=== PATIENT | male | born 1945 | race Caucasian/White ===

== ENCOUNTER → 2018-06-11 | Outpatient (CLI) | payer MEDICARE ==
--- NOTE | 2018-06-11 08:47 | US ---
EXAMINATION TYPE: US carotid duplex BILAT DATE OF EXAM: 06/11/2018 COMPARISON: NONE CLINICAL HISTORY: R42 Dizziness; not related to positional changes per patient; A Fib EXAM MEASUREMENTS: RIGHT: Peak Systolic Velocity (PSV) cm/sec ----- Right CCA: 66.6 ----- Right ICA: 82.5 ----- Right ECA: 61.6 ICA/CCA ratio: 1.2 RIGHT: End Diastole cm/sec ----- Right CCA: 14.9 ----- Right ICA: 25.0 ----- Right ECA: 11.9 LEFT: Peak Systolic Velocity (PSV) cm/sec ----- Left CCA: 56.7 ----- Left ICA: 87.5 ----- Left ECA: 96.0 ICA/CCA ratio: 1.5 LEFT: End Diastole cm/sec ----- Left CCA: 13.2 ----- Left ICA: 30.3 ----- Left ECA: 14.0 VERTEBRALS (direction of flow): Right Vertebral: Antegrade Left Vertebral: Antegrade Rhythm: Arrhythmia Mild to moderate intimal wall changes are noted at bilateral carotid bifurcation, but PSV is wnl bila terally. IMPRESSION: 1. Moderate amount of grayscale atheromatous plaquing at the right carotid bulb without elevated [place] or abnormal ratios to indicate hemodynamically significant stenosis on the right. 2. Mild atheromatous plaquing within the left common carotid artery and carotid bulb without hemodyna mically significant stenosis. 3. Incidentally noted arrhythmia. Patient describes a known history of atrial fibrillation.
== END | disposition home or self-care (01) ==
LOC: RADUSWWP 08:00
PROVIDERS: ATTEND Internal Medicine
DX: I65.23 Occlusion and stenosis of bilateral carotid arteries (principal); I48.91 Unspecified atrial fibrillation
CPT/HCPCS: 93880

== ENCOUNTER 2019-10-05 12:53 | Inpatient (IN) | payer MEDICARE ==
[2019-10-05 14:20] LABS: Basophils % (A) 1 %; Eosinophils # (A) 0.2 k/uL (0-0.7); Eosinophils % (A) 3 %; HCT 23.5 % (39.0-53.0); Lymphocytes # (A) 0.9 k/uL (1.0-4.8); Lymphocytes % (A) 15 %; MCH 35.9 pg (25.0-35.0); MCHC 33.9 g/dL (31.0-37.0); MCV 105.7 fL (80.0-100.0); Macrocytosis Moderate; Mean Platelet Volume 6.5; Monocytes # (A) 0.4 k/uL (0-1.0); Monocytes % (A) 8 %; Neutrophils % (A) 71 %; Platelet Count 132 k/uL (150-450); RBC 2.22 m/uL (4.30-5.90); RDW 14.4 % (11.5-15.5); WBC 5.7 k/uL (3.8-10.6)
[2019-10-05 14:25] LABS: INR 1.2 (<1.2); Prothrombin Time 12.2 sec (9.0-12.0)
[2019-10-05 14:26] LABS: Albumin 3.3 g/dL (3.5-5.0); Calcium 8.4 mg/dL (8.4-10.2); Magnesium 1.2 mg/dL (1.6-2.3); Potassium 4.1 mmol/L (3.5-5.1); Total Protein 6.3 g/dL (6.3-8.2)
[2019-10-05] MEDS ORDERED: SODIUM CHLORIDE 0.9% 1,000 ML IV STA (14:55)
[2019-10-05] MEDS ORDERED: SODIUM CHLORIDE 0.9% 1,000 ML IV ONE (14:55)
[2019-10-05] MEDS ORDERED: NALOXONE 0.4 MG/ML 1 ML VIAL IV PRN (15:22)
--- NOTE | 2019-10-05 15:22 | ED ---
GI Bleed HPI - General Chief complaint: GI Bleed Stated complaint: Rectal bleeding Time Seen by Provider: 10/05/19 13:00 Source: patient Mode of arrival: wheelchair Limitations: physical limitation - History of Present Illness Initial comments: The patient is a 74-year-old male with past history of A. fib on Elquis who presents emergency room with bright red blood per rectum. He states that the symptoms have been present for the past several months. He will intermittently have episodes of bright red bleeding after having a bowel movement. Denies constipation or diarrhea. No grossly melanotic stools. Denies any abdominal pain or rectal pain. States that today he did have a bowel movement and noted that he had bright red blood per rectum. He was having difficulty stopping it and therefore came into the emergency room for evaluation. He has been taking his Elquis as directed. Family at bedside does report to a possible history of previous GI bleeding. He had a colonoscopy in [address] Orozco. She is unaware of the results. Does not remember a diagnosis of peptic ulcer disease. This is last time the patient had a colonoscopy. Denies nausea, vomiting or hematemesis. Denies any urinary changes. There are no other alleviating, precipitating or modifying factors - Related Data Home Medications Medication Instructions Recorded Confirmed Allopurinol [Zyloprim] 100 mg PO QAM 10/05/19 10/05/19 Apixaban [Eliquis] 5 mg PO BID 10/05/19 10/05/19 Carvedilol 25 mg PO QAM 10/05/19 10/05/19 Enalapril [Vasotec] 2.5 mg PO DAILY 10/05/19 10/05/19 Ferrous Sulfate [Feosol] 325 mg PO QAM 10/05/19 10/05/19 Furosemide [Lasix] 40 mg PO BID 10/05/19 10/05/19 Meloxicam [Mobic] 7.5 mg PO QAM 10/05/19 10/05/19 [place]-3 Fatty Acids [[place]-3] 1,000 mg PO QAM 10/05/19 10/05/19 Omeprazole 20 mg PO QAM 10/05/19 10/05/19 Allergies Allergy/AdvReac Type Severity Reaction Status Date / Time No Known Allergies Allergy Verified 10/05/19 13:35 Review of Systems ROS Statement: Those systems with pertinent positive or pertinent negative responses have been documented in the HPI. ROS Other: All systems not noted in ROS Statement are negative. Past Medical History Past Medical History: Atrial Fibrillation, Coronary Artery Disease (CAD), Diabetes Mellitus, GERD/Reflux, Hypertension Additional Past Medical History / Comment(s): low hgb, gout Additional Past Surgical History / Comment(s): hip, cataracts Past Psychological History: No Psychological Hx Reported Smoking Status: Never smoker Past Alcohol Use History: Daily Past Drug Use History: None Reported - Past Family History Father Family Medical History: Diabetes Mellitus Mother Family Medical History: No Reported History General Exam Limitations: physical limitation General appearance: alert, in no apparent distress Head exam: Present: atraumatic, normocephalic, normal inspection Eye exam: Present: normal appearance, PERRL, EOMI. Absent: scleral icterus, conjunctival injection, periorbital swelling ENT exam: Present: normal exam, mucous membranes moist Neck exam: Present: normal inspection. Absent: tenderness, meningismus, lymphadenopathy Respiratory exam: Present: normal lung sounds bilaterally. Absent: respiratory distress, wheezes, rales, rhonchi, stridor Cardiovascular Exam: Present: regular rate, normal rhythm, normal heart sounds. Absent: systolic murmur, diastolic murmur, rubs, gallop, clicks GI/Abdominal exam: Present: soft, normal bowel sounds. Absent: distended, tenderness, guarding, rebound, rigid Rectal exam: Present: bloody stool, hemorrhoids, other (the patient has extensive external hemorrhoids. There are also some dusky appearing tissue at the anal opening which could represent prolapsed internal hemorrhoids vs mass. There is a slow trickle of consistent bright red blood from the rectum) Extremities exam: Present: normal inspection, full ROM, normal capillary refill. Absent: tenderness, pedal edema, joint swelling, calf tenderness Back exam: Present: normal inspection Neurological exam: Present: alert, oriented X3, CN II-XII intact Psychiatric exam: Present: normal affect, normal mood Skin exam: Present: warm, dry, intact, normal color. Absent: rash Course Vital Signs 10/05/19 10/05/19 10/05/19 12:57 15:35 16:36 Temperature 97.9 F 98.0 F Pulse Rate 90 91 79 Respiratory 18 16 16 Rate Blood Pressure 170/109 143/100 156/96 O2 Sat by Pulse 94 L 97 96 Oximetry Procedures - Stool Hemoccult Hemoccult result: positive Medical Decision Making - Medical Decision Making Upon arrival the patient was placed into room 6. A thorough history and physical exam was performed. I did perform a rectal exam which demonstrates mul tiple nonthrombosed external hemorrhoids. The patient also has multiple what appear to be internal prolapsed hemorrhoids. Rectal mass difficult to rule out due to the macerated appearance. There is a slow trickle of bright red blood from the rectum. I did recommend laboratory studies. Hemoglobin is 8. Previous hemoglobin in February was 12.4. INR is 1.2. Sodium 131, chloride 92. Lactic acid 2.6. Magnesium 1.2. Fecal occult was positive. I did provide the patient with a liter bolus of normal saline followed by 100 mL per hour. I also replace his magnesium. I did recommend trending the patient's hemoglobin every 8 hours. I called and discussed the Case with Dr. Waldrop who accepted admission to the ICU. I also called and discussed the case with Dr. Moscoso accepted admission. Dr. Moscoso requested that I place surgery/Dr. Lugo on consult. I called Dr. Lugo twice without call back. I then called and discussed the case with Dr. Slaughter who states that Dr. Lugo is out of town and that he is already aware of the consult. Patient was then transported to the floor in stable condition. I will hold his Eliquis. - Lab Data Result diagrams: 10/06/19 16:29 10/06/19 06:00 Lab Results 10/05/19 10/05/19 10/05/19 Range/Units 14:00 14:05 14:05 WBC 5.7 (3.8-10.6) k/uL RBC 2.22 L (4.30-5.90) m/uL Hgb 8.0 L (13.0-17.5) gm/dL Hct 23.5 L (39.0-53.0) % MCV 105.7 H (80.0-100.0) fL MCH 35.9 H (25.0-35.0) pg MCHC 33.9 (31.0-37.0) g/dL RDW 14.4 (11.5-15.5) % Plt Count 132 L (150-450) k/uL Neutrophils % 71 % Lymphocytes % 15 % Monocytes % 8 % Eosinophils % 3 % Basophils % 1 % Neutrophils # 4.0 (1.3-7.7) k/uL Lymphocytes # 0.9 L (1.0-4.8) k/uL Monocytes # 0.4 (0-1.0) k/uL Eosinophils # 0.2 (0-0.7) k/uL Basophils # 0.0 (0-0.2) k/uL Macrocytosis Moderate PT (9.0-12.0) sec INR (<1.2) APTT (22.0-30.0) sec Sodium 131 L (137-145) mmol/L Potassium 4.1 (3.5-5.1) mmol/L Chloride 92 L (98-107) mmol/L Carbon Dioxide 30 (22-30) mmol/L Anion Gap 9 mmol/L BUN 18 (9-20) mg/dL Creatinine 1.01 (0.66-1.25) mg/dL Est GFR (CKD-EPI)AfAm 84 (>60 ml/min/1.73 sqM) Est GFR (CKD-EPI)NonAf 73 (>60 ml/min/1.73 sqM) Glucose 85 (74-99) mg/dL Lactic Ac Sepsis Rflx Plasma Lactic Acid Sincere (0.7-2.0) mmol/L Calcium 8.4 (8.4-10.2) mg/dL Magnesium 1.2 L (1.6-2.3) mg/dL Total Bilirubin 1.0 (0.2-1.3) mg/dL AST 30 (17-59) U/L ALT 20 L (21-72) U/L Alkaline Phosphatase 98 (38-126) U/L Total Protein 6.3 (6.3-8.2) g/dL Albumin 3.3 L (3.5-5.0) g/dL Lipase 103 (23-300) U/L Stool Occult Blood (Negative) Blood Type Blood Type Confirm O Positive Blood Type Recheck Bld Type Recheck Status Antibody Screen Crossmatch Spec Expiration Date 10/05/19 10/05/19 10/05/19 Range/Units 14:05 14:05 14:05 WBC (3.8-10.6) k/uL RBC (4.30-5.90) m/uL Hgb (13.0-17.5) gm/dL Hct (39.0-53.0) % MCV (80.0-100.0) fL MCH (25.0-35.0) pg MCHC (31.0-37.0) g/dL RDW (11.5-15.5) % Plt Count (150-450) k/uL Neutrophils % % Lymphocytes % % Monocytes % % Eosinophils % % Basophils % % Neutrophils # (1.3-7.7) k/uL Lymphocytes # (1.0-4.8) k/uL Monocytes # (0-1.0) k/uL Eosinophils # (0-0.7) k/uL Basophils # (0-0.2) k/uL Macrocytosis PT 12.2 H (9.0-12.0) sec INR 1.2 H (<1.2) APTT 31.0 H (22.0-30.0) sec Sodium (137-145) mmol/L Potassium (3.5-5.1) mmol/L Chloride (98-107) mmol/L Carbon Dioxide (22-30) mmol/L Anion Gap mmol/L BUN (9-20) mg/dL Creatinine (0.66-1.25) mg/dL Est GFR (CKD-EPI)AfAm (>60 ml/min/1.73 sqM) Est GFR (CKD-EPI)NonAf (>60 ml/min/1.73 sqM) Glucose (74-99) mg/dL Lactic Ac Sepsis Rflx Plasma Lactic Acid Sincere 2.6 H* (0.7-2.0) mmol/L Calcium (8.4-10.2) mg/dL Magnesium (1.6-2.3) mg/dL Total Bilirubin (0.2-1.3) mg/dL AST (17-59) U/L ALT (21-72) U/L Alkaline Phosphatase (38-126) U/L Total Protein (6.3-8.2) g/dL Albumin (3.5-5.0) g/dL Lipase (23-300) U/L Stool Occult Blood Positive (Negative) Blood Type Blood Type Confirm Blood Type Recheck Bld Type Recheck Status Antibody Screen Crossmatch Spec Expiration Date 10/05/19 10/05/19 Range/Units 14:05 14:32 WBC (3.8-10.6) k/uL RBC (4.30-5.90) m/uL Hgb (13.0-17.5) gm/dL Hct (39.0-53.0) % MCV (80.0-100.0) fL MCH (25.0-35.0) pg MCHC (31.0-37.0) g/dL RDW (11.5-15.5) % Plt Count (150-450) k/uL Neutrophils % % Lymphocytes % % Monocytes % % Eosinophils % % Basophils % % Neutrophils # (1.3-7.7) k/uL Lymphocytes # (1.0-4.8) k/uL Monocytes # (0-1.0) k/uL Eosinophils # (0-0.7) k/uL Basophils # (0-0.2) k/uL Macrocytosis PT (9.0-12.0) sec INR (<1.2) APTT (22.0-30.0) sec Sodium (137-145) mmol/L Potassium (3.5-5.1) mmol/L Chloride (98-107) mmol/L Carbon Dioxide (22-30) mmol/L Anion Gap mmol/L BUN (9-20) mg/dL Creatinine (0.66-1.25) mg/dL Est GFR (CKD-EPI)AfAm (>60 ml/min/1.73 sqM) Est GFR (CKD-EPI)NonAf (>60 ml/min/1.73 sqM) Glucose (74-99) mg/dL Lactic Ac Sepsis Rflx Y Plasma Lactic Acid Sincere (0.7-2.0) mmol/L Calcium (8.4-10.2) mg/dL Magnesium (1.6-2.3) mg/dL Total Bilirubin (0.2-1.3) mg/dL AST (17-59) U/L ALT (21-72) U/L Alkaline Phosphatase (38-126) U/L Total Protein (6.3-8.2) g/dL Albumin (3.5-5.0) g/dL Lipase (23-300) U/L Stool Occult Blood (Negative) Blood Type O Positive Blood Type Confirm Blood Type Recheck No Previous Record Bld Type Recheck Status CABO Indicated Antibody Screen NEGATIVE Crossmatch See Detail Spec Expiration Date 10/08/2019 Disposition Clinical Impression: Hematochezia Disposition: ADMITTED IP TO THIS [facility] Condition: Serious Is patient prescribed a controlled substance at d/c from ED?: No Decision to Admit Reason: Admit from EC Decision Date: 10/05/19 Decision Time: 15:21
[2019-10-05] MEDS: SODIUM CHLORIDE 0.9% 1,000 ML IV SCH (15:33)
[2019-10-05 17:14] LABS: Glucose,Whole Blood 91 mg/dL (75-99)
[2019-10-05] MEDS ORDERED: Magnesium Replacement Protocol 1 EACH MISC MISCELLANE PRN (18:05)
[2019-10-05] MEDS ORDERED: LORazepam 2 MG/ML INJ IV PRN ×3 (19:07)
[2019-10-05] MEDS ORDERED: THIAMINE 100 MG/ML 2 ML VIAL IM STA (19:07)
[2019-10-05] MEDS: MAGNESIUM SULFATE-D5W PMX 1 GM in DEXTROSE/WATER 1 100ML.BAG IVPB SCH ×3 (20:08→22:39)
[2019-10-05] MEDS: THIAMINE 100 MG TAB PO SCH (20:19)
[2019-10-05] MEDS: PANTOPRAZOLE 40 MG/10 ML VIAL IV SCH (21:29)
[2019-10-05] MEDS ORDERED: CARVEDILOL 12.5 MG TAB PO STA (22:24)
--- NOTE | 2019-10-06 00:18 | P.HPIM ---
History of Present Illness H&P Date: 10/05/19 Chief Complaint: Blood per rectum Patient is a 74-year-old male with a known history of atrial fibrillation on Eliquis currently, diabetes type 2, hypertension and GERD came to ER with complaints of blood per rectum. Patient has been having symptoms of blood per rectum, bright red blood for the past 2-3 months. Today patient noticed blood clots and is bleeding more than usual and unable to come down at home. Patient presented to ER for further evaluation. Patient is a poor historian otherwise. Patient does have a history of previous colonoscopy in 2012. Denied any abdominal pain. No nausea vomiting. No hematemesis. No dysuria or hematuria. No headache. Patient has been having bilateral lower the swelling chronically and is getting worse recently. Patient does take Lasix 40 mg twice daily at home. Denied any fever or chills. No cough or sputum production. Hemoglobin 8.0. Usually runs around 12 MCV 103 and platelets 132,000 Lactic acid 2.6, sodium 131 Review of Systems Constitutional: Patient denies any fever or chills . No generalized weakness or weight loss. Abdomen: Patient denied nausea vomiting and diarrhea and abdominal pain. Cardiovascular: Patient denies any chest pain or short of breath no palpitations. Patient does have leg swelling bilaterally Respiratory: patient denied any cough is from production. No shortness of breath Neurologic: Patient denied any numbness or tingling headache. Musculoskeletal: Patient denies any complaints of joint swelling or deformity. Skin: Negative Complete review of systems could not be obtained from the patient. Past Medical History Past Medical History: Atrial Fibrillation, Coronary Artery Disease (CAD), Diabetes Mellitus, GERD/Reflux, Hypertension Additional Past Medical History / Comment(s): low hgb, gout History of Any Multi-Drug Resistant Organisms: None Reported Additional Past Surgical History / Comment(s): hip, cataracts Past Anesthesia/Blood Transfusion Reactions: No Reported Reaction Past Psychological History: No Psychological Hx Reported Smoking Status: Never smoker Past Alcohol Use History: Daily Past Drug Use History: None Reported - Past Family History Father Family Medical History: Diabetes Mellitus Mother Family Medical History: No Reported History Medications and Allergies Home Medications Medication Instructions Recorded Confirmed Type Allopurinol [Zyloprim] 100 mg PO QAM 10/05/19 10/05/19 History Apixaban [Eliquis] 5 mg PO BID 10/05/19 10/05/19 History Carvedilol 25 mg PO QAM 10/05/19 10/05/19 History Enalapril [Vasotec] 2.5 mg PO DAILY 10/05/19 10/05/19 History Ferrous Sulfate [Feosol] 325 mg PO QAM 10/05/19 10/05/19 History Furosemide [Lasix] 40 mg PO BID 10/05/19 10/05/19 History Meloxicam [Mobic] 7.5 mg PO QAM 10/05/19 10/05/19 History [place]-3 Fatty Acids [[place]-3] 1,000 mg PO QAM 10/05/19 10/05/19 History Omeprazole 20 mg PO QAM 10/05/19 10/05/19 History Allergies Allergy/AdvReac Type Severity Reaction Status Date / Time No Known Allergies Allergy Verified 10/05/19 13:35 Physical Exam Vitals: Vital Signs Temp Pulse Resp BP Pulse Ox 10/05/19 22:00 71 18 174/101 98 10/05/19 21:00 64 20 165/99 98 10/05/19 20:00 98.2 F 67 22 154/82 98 10/05/19 19:00 84 32 H 160/87 98 10/05/19 18:00 80 23 148/92 98 10/05/19 17:30 87 24 148/92 98 10/05/19 16:36 98.0 F 79 16 156/96 96 10/05/19 15:35 91 16 143/100 97 10/05/19 12:57 97.9 F 90 18 170/109 94 L Intake and Output 10/05/19 10/05/19 10/06/19 14:59 22:59 06:59 Intake Total 600 Output Total 500 Balance 100 Intake: Intake, IV Titration 600 Amount Magnesium Sulfate-D5w Pmx 100 1 gm In Dextrose/Water 1 100ml.bag @ 100 mls/hr IVPB Q1H MONIKA Rx#: [id number] Sodium Chloride 0.9% 1, 500 000 ml @ 100 mls/hr IV . Q10H MONIKA Rx#:[id number] Output: Urine 500 Other: Voiding Method Urinal Weight 106.594 kg PHYSICAL EXAMINATION: Patient is lying in the bed comfortably, no acute distress, awake alert and oriented.. HEENT: Normocephalic. Neck is supple. Pupils reactive. Nostrils clear. Oral cavity is moist. Ears reveal no drainage. Neck reveals no JVD, carotid bruits, or thyromegaly. CHEST EXAMINATION: Trachea is central. Symmetrical expansion. Lung moreira clear to auscultation and percussion. CARDIAC: Normal S1, S2 with no gallops. No murmurs ABDOMEN: Soft. Bowel sounds normal. No organomegaly. No abdominal bruits. Extremities: Bilateral lower extremity 3+ edema. No clubbing or cyanosis Neurologically awake, alert, oriented x3 with well-coordinated movements. No focal deficits noted Skin: No rash or skin lesions. Psychiatric: Coperative. Nonsuicidal Musculoskeletal: No joint swelling or deformity. Normal range of motion. Results CBC & Chem 7: 10/05/19 14:05 10/05/19 14:05 Labs: Abnormal Lab Results - Last 24 Hours (Table) 10/05/19 10/05/19 10/05/19 Range/Units 14:05 14:05 14:05 RBC 2.22 L (4.30-5.90) m/uL Hgb 8.0 L (13.0-17.5) gm/dL Hct 23.5 L (39.0-53.0) % MCV 105.7 H (80.0-100.0) fL MCH 35.9 H (25.0-35.0) pg Plt Count 132 L (150-450) k/uL Lymphocytes # 0.9 L (1.0-4.8) k/uL PT 12.2 H (9.0-12.0) sec INR 1.2 H (<1.2) APTT 31.0 H (22.0-30.0) sec Sodium 131 L (137-145) mmol/L Chloride 92 L (98-107) mmol/L Plasma Lactic Acid Sincere (0.7-2.0) mmol/L Magnesium 1.2 L (1.6-2.3) mg/dL ALT 20 L (21-72) U/L Albumin 3.3 L (3.5-5.0) g/dL 10/05/19 Range/Units 14:05 RBC (4.30-5.90) m/uL Hgb (13.0-17.5) gm/dL Hct (39.0-53.0) % MCV (80.0-100.0) fL MCH (25.0-35.0) pg Plt Count (150-450) k/uL Lymphocytes # (1.0-4.8) k/uL PT (9.0-12.0) sec INR (<1.2) APTT (22.0-30.0) sec Sodium (137-145) mmol/L Chloride (98-107) mmol/L Plasma Lactic Acid Sincere 2.6 H* (0.7-2.0) mmol/L Magnesium (1.6-2.3) mg/dL ALT (21-72) U/L Albumin (3.5-5.0) g/dL Thrombosis Risk Factor Assmnt - DVT/VTE Prophylaxis DVT/VTE Prophylaxis: Mechanical Prophylaxis ordered Assessment and Plan Assessment: Acute blood loss anemia secondary to lower GI bleed. Rectal mass cannot be excluded. Symptomatic anemia Atrial fibrillation paroxysmal . on anticoagulation with Eliquis Diabetes type 2 Hypovolemic hyponatremia Lactic acidosis Macrocytic anemia secondary to chronic alcohol use Uncontrolled hypertension GERD Alcohol abuse on daily basis GI and DVT prophylaxis. Plan: Patient will be continued on IV hydration and monitor H&H. Continue with thiamine and multivitamins and PPI. Gen. surgery will be consulted. Continue with home blood pressure medications and monitor closely. Titrate blood pressure medications. Eliquis is on hold. Further recommendations based on the clinical course. Prognosis guarded at this time. Monitor for alcohol withdrawal symptoms Time with Patient: Greater than 30
[2019-10-06 00:33] LABS: HCT 21.9 % (39.0-53.0); HGB 7.1 gm/dL (13.0-17.5); MCH 34.6 pg (25.0-35.0); MCHC 32.6 g/dL (31.0-37.0); Macrocytosis Moderate; Mean Platelet Volume 7.1; Platelet Count 114 k/uL (150-450); RBC 2.06 m/uL (4.30-5.90); RDW 14.4 % (11.5-15.5); WBC 5.1 k/uL (3.8-10.6)
[2019-10-06] MEDS: SODIUM CHLORIDE 0.9% 1,000 ML IV SCH ×3 (01:34→20:49)
--- NOTE | 2019-10-06 03:08 | XR ---
EXAMINATION TYPE: XR chest 1V portable DATE OF EXAM: 10/05/2019 COMPARISON: NONE HISTORY: Short of breath TECHNIQUE: Single frontal view of the chest is obtained. FINDINGS: Heart is enlarged. There is mild pulmonary congestion. There is very slight blunting of th e costophrenic angles. There are chest leads IMPRESSION: There is evidence for mild congestive heart failure. Moderate cardiomegaly.
[2019-10-06 05:10] LABS: Appearance,Urine Clear (Clear); Bilirubin,Urine Negative (Negative); Blood,Urine Negative (Negative); Color,Urine Yellow; Glucose,Urine (UA) Negative (Negative); Ketones,Urine 1+ (Negative); Leukocyte Esterase,Urine Negative (Negative); Nitrite,Urine Negative (Negative); PH, Urine 5.5 (5.0-8.0); Protein,Urine Trace (Negative); Specific Gravity,Urine 1.016 (1.001-1.035)
[2019-10-06 06:24] LABS: Basophils % (A) 1 %; Eosinophils # (A) 0.2 k/uL (0-0.7); Eosinophils % (A) 4 %; HCT 20.5 % (39.0-53.0); Lymphocytes # (A) 0.8 k/uL (1.0-4.8); Lymphocytes % (A) 19 %; MCH 35.4 pg (25.0-35.0); MCHC 33.2 g/dL (31.0-37.0); MCV 106.7 fL (80.0-100.0); Macrocytosis Moderate; Mean Platelet Volume 6.7; Monocytes # (A) 0.4 k/uL (0-1.0); Monocytes % (A) 10 %; Neutrophils # (A) 2.7 k/uL (1.3-7.7); Neutrophils % (A) 63 %; Platelet Count 117 k/uL (150-450); RBC 1.92 m/uL (4.30-5.90); RDW 14.4 % (11.5-15.5); WBC 4.2 k/uL (3.8-10.6)
[2019-10-06 06:37] LABS: African American GFR (CKD) >90 (>60 ml/min/1.73 sqM); Anion Gap 7 mmol/L; Blood Urea Nitrogen 16 mg/dL (9-20); Carbon Dioxide 28 mmol/L (22-30); Chloride 96 mmol/L (98-107); Glucose 74 mg/dL (74-99); Magnesium 1.7 mg/dL (1.6-2.3); Non-African American GFR(CKD) 88 (>60 ml/min/1.73 sqM); Potassium 4.4 mmol/L (3.5-5.1); Sodium 131 mmol/L (137-145)
[2019-10-06 06:41] LABS: HGB 6.8 gm/dL (13.0-17.5)
[2019-10-06] MEDS ORDERED: PANTOPRAZOLE 40 MG TABLET PO SCH (07:30)
[2019-10-06] MEDS: INSULIN ASPART (NovoLOG) 100 UNIT/ML VIAL SQ SCH ×3 (07:40→17:01)
[2019-10-06] MEDS: THIAMINE 100 MG TAB PO SCH ×2 (07:51→17:01)
[2019-10-06] MEDS: MAGNESIUM SULFATE-D5W PMX 1 GM in DEXTROSE/WATER 1 100ML.BAG IVPB SCH ×2 (07:51→09:51)
[2019-10-06] MEDS: LISINOPRIL 5 MG TAB PO SCH (08:00)
[2019-10-06] MEDS: CARVEDILOL 12.5 MG TAB PO SCH (08:00)
[2019-10-06] MEDS: PANTOPRAZOLE 40 MG/10 ML VIAL IV SCH (08:00)
[2019-10-06] MEDS: FERROUS SULFATE 325 MG TAB PO SCH (08:00)
[2019-10-06 11:30] LABS: Glucose,Whole Blood 97 mg/dL (75-99)
--- NOTE | 2019-10-06 12:00 | P.CNPUL ---
History of Present Illness Consult date: 10/06/19 Requesting physician: Gisele Moscoso Reason for consult: other (Critical care management) Chief complaint: Rectal bleeding History of present illness: This is a very pleasant 74-year-old gentleman who follows with Dr. Bowman as her primary care provider. He has a history of atrial fibrillation anticoagulated with Eliquis, coronary artery disease, diabetes mellitus, gastroesophageal reflux disease, hypertension, daily alcohol use. He is a lifelong nonsmoker. He presented here to the emergency room yesterday after developing bright red blood per rectum. He denied having any noted bloody bowel movements. States most of the blood comes while he is wiping. Yesterday however he is having trouble stopping the bleeding. He presented here to the emergency room for the same. No dizziness or lightheadedness. No chest pain or shortness of breath. Chest x-ray shows mild pulmonary congestion with cardiomegaly. Initial hemoglobin 7.1. Today 6.8. White count 4.2. Platelets 117,000. MCV 106.7. Sodium 131. Creatinine 0.79. He is seen today in consultation in the intensive care unit. He is awake and alert in no acute distress. Hemodynamically stable. On room air. One unit of packed red blood cells being transfused. Surgical consult pending. Review of Systems REVIEW OF SYSTEMS: CONSTITUTIONAL: Denies any recent significant weight loss or weight gain. EYES: Denies change in vision. EARS, NOSE, MOUTH, THROAT: Denies headaches, denies sore throat. CARDIOVASCULAR: Denies chest pain, palpitations or syncopal episodes. RESPIRATORY: Denies shortness of breath, cough, congestion or hemoptysis. GASTROINTESTINAL: Bright red blood per rectum GENITOURINARY: Denies hematuria, denies infections. MUSKULOSKELETAL: Denies pain, denies swelling. INTEGUMENTARY: Denies rash, denies eczema. NEUROLOGICAL: Denies recent memory loss, no recent seizure activity. PSYCHIATRIC: Denies anxiety, denies depression. HEMATOLOGIC/LYMPHATIC: Denies anemia, denies enlarged lymph nodes. Past Medical History Past Medical History: Atrial Fibrillation, Coronary Artery Disease (CAD), Diabetes Mellitus, GERD/Reflux, Hypertension Additional Past Medical History / Comment(s): low hgb, gout History of Any Multi-Drug Resistant Organisms: None Reported Additional Past Surgical History / Comment(s): hip, cataracts Past Anesthesia/Blood Transfusion Reactions: No Reported Reaction Past Psychological History: No Psychological Hx Reported Smoking Status: Never smoker Past Alcohol Use History: Daily Past Drug Use History: None Reported - Past Family History Father Family Medical History: Diabetes Mellitus Mother Family Medical History: No Reported History Medications and Allergies Home Medications Medication Instructions Recorded Confirmed Type Allopurinol [Zyloprim] 100 mg PO QAM 10/05/19 10/05/19 History Apixaban [Eliquis] 5 mg PO BID 10/05/19 10/05/19 History Carvedilol 25 mg PO QAM 10/05/19 10/05/19 History Enalapril [Vasotec] 2.5 mg PO DAILY 10/05/19 10/05/19 History Ferrous Sulfate [Feosol] 325 mg PO QAM 10/05/19 10/05/19 History Furosemide [Lasix] 40 mg PO BID 10/05/19 10/05/19 History Meloxicam [Mobic] 7.5 mg PO QAM 10/05/19 10/05/19 History Boston-3 Fatty Acids [Boston-3] 1,000 mg PO QAM 10/05/19 10/05/19 History Omeprazole 20 mg PO QAM 10/05/19 10/05/19 History Allergies Allergy/AdvReac Type Severity Reaction Status Date / Time No Known Allergies Allergy Verified 10/05/19 13:35 Physical Exam Vitals: Vital Signs Temp Pulse Resp BP Pulse Ox 10/06/19 10:27 97.6 F 59 L 29 H 128/79 100 10/06/19 08:00 98.1 F 64 18 144/85 98 10/06/19 07:00 58 L 21 126/78 99 10/06/19 06:00 66 16 143/78 97 10/06/19 05:00 56 L 21 136/79 99 10/06/19 04:00 98.0 F 56 L 16 131/78 98 10/06/19 03:00 57 L 16 136/78 98 10/06/19 02:00 63 20 139/71 99 10/06/19 01:00 63 20 159/85 98 10/06/19 00:00 98.0 F 67 22 162/91 97 10/05/19 23:00 72 18 174/106 97 10/05/19 22:00 71 18 174/101 98 10/05/19 21:00 64 20 165/99 98 10/05/19 20:00 98.2 F 67 22 154/82 98 10/05/19 19:00 84 32 H 160/87 98 10/05/19 18:00 80 23 148/92 98 10/05/19 17:30 87 24 148/92 98 10/05/19 16:36 98.0 F 79 16 156/96 96 10/05/19 15:35 91 16 143/100 97 10/05/19 12:57 97.9 F 90 18 170/109 94 L Intake and Output 10/05/19 10/06/19 10/06/19 22:59 06:59 14:59 Intake Total 600 1000 200 Output Total 500 300 250 Balance 100 700 -50 Intake: IV 100 Magnesium Sulfate-D5w Pmx 100 1 gm In Dextrose/Water 1 100ml.bag @ 100 mls/hr IVPB Q1H [facility] Rx#: [id number] Intake, IV Titration 600 1000 100 Amount Magnesium Sulfate-D5w Pmx 100 200 1 gm In Dextrose/Water 1 100ml.bag @ 100 mls/hr IVPB Q1H [facility]IK[facility] Rx#: [id number] Sodium Chloride 0.9% 1, 500 800 100 000 ml @ 100 mls/hr IV . Q10H [facility] Rx#:[id number] Blood Product 0 Rc Pheresis 2 As3 Unit 0 [id number] Output: Urine 500 300 250 Other: Voiding Method Urinal Urinal Weight 111.9 kg GENERAL EXAM: Alert, active, comfortable in no apparent distress. On room air. HEAD: Normocephalic. EYES: Normal reaction of pupils, equal size. NOSE: Clear with pink turbinates. THROAT: No erythema or exudates. NECK: No masses, no JVD. CHEST: No chest wall deformity. LUNGS: Equal air entry with no crackles, wheeze, rhonchi or dullness. CVS: S1 and S2 normal with no audible murmur, regular rhythm. ABDOMEN: No hepatosplenomegaly, normal bowel sounds, no guarding or rigidity. SPINE: No scoliosis or deformity SKIN: No rashes CENTRAL NERVOUS SYSTEM: No focal deficits, tone is normal in all 4 extremities. EXTREMITIES: There is no peripheral edema. No clubbing, no cyanosis. Peripheral pulses are intact. Results - Laboratory Findings CBC and BMP: 10/06/19 06:00 10/06/19 06:00 PT/INR, D-dimer PT 12.2 sec (9.0-12.0) H 10/05/19 14:05 INR 1.2 (<1.2) H 10/05/19 14:05 Abnormal lab findings: Abnormal Labs 10/05/19 10/05/19 10/05/19 14:05 14:05 14:05 RBC 2.22 L Hgb 8.0 L Hct 23.5 L MCV 105.7 H MCH 35.9 H Plt Count 132 L Lymphocytes # 0.9 L PT 12.2 H INR 1.2 H APTT 31.0 H Sodium 131 L Chloride 92 L Plasma Lactic Acid Sincere Calcium Magnesium 1.2 L ALT 20 L Albumin 3.3 L Urine Protein Urine Ketones Crossmatch 10/05/19 10/05/19 10/06/19 14:05 14:05 00:24 RBC 2.06 L Hgb 7.1 L Hct 21.9 L MCV 106.0 H MCH Plt Count 114 L Lymphocytes # PT INR APTT Sodium Chloride Plasma Lactic Acid Sincere 2.6 H* Calcium Magnesium ALT Albumin Urine Protein Urine Ketones Crossmatch See Detail 10/06/19 10/06/19 10/06/19 04:50 06:00 06:00 RBC 1.92 L Hgb 6.8 L* Hct 20.5 L MCV 106.7 H MCH 35.4 H Plt Count 117 L Lymphocytes # 0.8 L PT INR APTT Sodium 131 L Chloride 96 L Plasma Lactic Acid Sincere Calcium 8.0 L Magnesium ALT Albumin Urine Protein Trace H Urine Ketones 1+ H Crossmatch - Diagnostic Findings Chest x-ray: image reviewed Assessment and Plan Assessment: #1 Acute bright red blood per rectum, suspect hemorrhoids. #2 Acute blood loss anemia secondary to above with current hemoglobin 6.8, recei ving 1 unit packed red blood cells. #3 Atrial fibrillation, anticoagulated with Eliquis. #4 Daily alcohol use. #5 Hypertension. #6 Gout. #7 History of iron deficiency anemia. Plan: The patient was seen and evaluated by Dr. Mariee. Chest x-ray and labs reviewed. The patient is receiving 1 unit of packed red blood cells. Eliquis on hold. 0.9 normal saline at 100 ML's per hour. On IV Protonix. Surgical consult pending. Placed on the CIWA protocol. Observe for signs of withdrawal. The patient could be transferred out of the intensive care unit to the selective care unit once his blood is received and he stays hemodynamically stable. Continue to monitor hemoglobin. We will continue to follow and make further recommendations based on his clinical status. I, the cosigning physician, performed a history & physical examination of the patient. Lungs sounds with few crackles in the posterior bases. Maintaining good O2 saturations in the 90s on room air. I discussed the assessment and plan of care with my nurse practitioner, Savi Edmonds. I attest to the above consultation as dictated by her.
[2019-10-06] MEDS ORDERED: FUROSEMIDE 10 MG/ML 2 ML VIAL IV ONE (13:30)
--- NOTE | 2019-10-06 14:22 | P.GSCN ---
History of Present Illness Consult date: 10/06/19 Reason for Consult: GI bleed Requesting physician: Maylin Mace History of present illness: CHIEF COMPLAINT: GI bleed HISTORY OF PRESENT ILLNESS: 74-year-old male who presented to the emergency room with a chief complaint of rectal bleeding. Patient reports he had a large amount of bright red blood per rectum yesterday. He states this has been an ongoing problem over the last several months but it has been happening intermittently. Patient denies abdominal pain. Patient denies any bloody bowel movements today. PAST MEDICAL HISTORY: See list. PAST SURGICAL HISTORY: See list. SOCIAL HISTORY: No illicit drug use. History of ETOH. REVIEW OF SYSTEMS: CONSTITUTIONAL: Denies fever or chills. HEENT: Denies blurred vision, vision changes, or eye pain. Denies hemoptysis CARDIOVASCULAR: Denies chest pain or pressure. RESPIRATORY: No shortness of breath. GASTROINTESTINAL: Refer to HPI for pertinent findings HEMATOLOGIC: Denies bleeding disorders. GENITOURINARY: Denies any blood in urine. SKIN: Denies pruitis. Denies rash. PHYSICAL EXAM: VITAL SIGNS: Reviewed. GENERAL: Well-developed in no acute distress. HEENT: No sclera icterus. Extraocular movements grossly intact. Moist buccal mucosa. Head is atraumatic, normocephalic. ABDOMEN: Soft. Nondistended. Nontender. NEUROLOGIC: Alert and oriented. Cranial nerves II through XII grossly intact. LABORATORY DATA: Most recent hemoglobin 6.8. Patient receiving 1 unit PRBCs ASSESSMENT: 1. Rectal bleeding, patient reports intermittent bright red blood per rectum over the last several months, but worse over last 2 days 2. Acute blood loss anemia PLAN: 1. Full liquid diet today. Clear liquid diet beginning tomorrow. NPO at midnight beginning Friday 2. Patient to complete GoLYTELY bowel prep tomorrow 3. Continue to hold Eliquis 4. Monitor hemoglobin. Transfuse for hemoglobin less than 7.0 5. Patient to undergo colonoscopy with Dr. Slaughter on Friday Nurse practitioner note has been reviewed by physician. Signing provider agrees with the documented findings, assessment, and plan of care. Past Medical History Past Medical History: Atrial Fibrillation, Coronary Artery Disease (CAD), Diabetes Mellitus, GERD/Reflux, Hypertension Additional Past Medical History / Comment(s): low hgb, gout History of Any Multi-Drug Resistant Organisms: None Reported Additional Past Surgical History / Comment(s): hip, cataracts Past Anesthesia/Blood Transfusion Reactions: No Reported Reaction Past Psychological History: No Psychological Hx Reported Smoking Status: Never smoker Past Alcohol Use History: Daily Past Drug Use History: None Reported - Past Family History Father Family Medical History: Diabetes Mellitus Mother Family Medical History: No Reported History Medications and Allergies Home Medications Medication Instructions Recorded Confirmed Type Allopurinol [Zyloprim] 100 mg PO QAM 10/05/19 10/05/19 History Apixaban [Eliquis] 5 mg PO BID 10/05/19 10/05/19 History Carvedilol 25 mg PO QAM 10/05/19 10/05/19 History Enalapril [Vasotec] 2.5 mg PO DAILY 10/05/19 10/05/19 History Ferrous Sulfate [Feosol] 325 mg PO QAM 10/05/19 10/05/19 History Furosemide [Lasix] 40 mg PO BID 10/05/19 10/05/19 History Meloxicam [Mobic] 7.5 mg PO QAM 10/05/19 10/05/19 History [place]-3 Fatty Acids [Ekron-3] 1,000 mg PO QAM 10/05/19 10/05/19 History Omeprazole 20 mg PO QAM 10/05/19 10/05/19 History Allergies Allergy/AdvReac Type Severity Reaction Status Date / Time No Known Allergies Allergy Verified 10/05/19 13:35 Surgical - Exam Vital Signs Temp Pulse Resp BP Pulse Ox 97.9 F 90 18 170/109 94 L 10/05/19 12:57 10/05/19 12:57 10/05/19 12:57 10/05/19 12:57 10/05/19 12:57 Results - Labs 10/07/19 04:17 10/07/19 04:17 Abnormal Lab Results - Last 24 Hours (Table) 10/05/19 10/05/19 10/05/19 Range/Units 14:05 14:05 14:05 RBC 2.22 L (4.30-5.90) m/uL Hgb 8.0 L (13.0-17.5) gm/dL Hct 23.5 L (39.0-53.0) % MCV 105.7 H (80.0-100.0) fL MCH 35.9 H (25.0-35.0) pg Plt Count 132 L (150-450) k/uL Lymphocytes # 0.9 L (1.0-4.8) k/uL PT 12.2 H (9.0-12.0) sec INR 1.2 H (<1.2) APTT 31.0 H (22.0-30.0) sec Sodium 131 L (137-145) mmol/L Chloride 92 L (98-107) mmol/L Plasma Lactic Acid Sincere (0.7-2.0) mmol/L Calcium (8.4-10.2) mg/dL Magnesium 1.2 L (1.6-2.3) mg/dL ALT 20 L (21-72) U/L Albumin 3.3 L (3.5-5.0) g/dL Urine Protein (Negative) Urine Ketones (Negative) Crossmatch 10/05/19 10/05/19 10/06/19 Range/Units 14:05 14:05 00:24 RBC 2.06 L (4.30-5.90) m/uL Hgb 7.1 L (13.0-17.5) gm/dL Hct 21.9 L (39.0-53.0) % MCV 106.0 H (80.0-100.0) fL MCH (25.0-35.0) pg Plt Count 114 L (150-450) k/uL Lymphocytes # (1.0-4.8) k/uL PT (9.0-12.0) sec INR (<1.2) APTT (22.0-30.0) sec Sodium (137-145) mmol/L Chloride (98-107) mmol/L Plasma Lactic Acid Sincere 2.6 H* (0.7-2.0) mmol/L Calcium (8.4-10.2) mg/dL Magnesium (1.6-2.3) mg/dL ALT (21-72) U/L Albumin (3.5-5.0) g/dL Urine Protein (Negative) Urine Ketones (Negative) Crossmatch See Detail 10/06/19 10/06/19 10/06/19 Range/Units 04:50 06:00 06:00 RBC 1.92 L (4.30-5.90) m/uL Hgb 6.8 L* (13.0-17.5) gm/dL Hct 20.5 L (39.0-53.0) % MCV 106.7 H (80.0-100.0) fL MCH 35.4 H (25.0-35.0) pg Plt Count 117 L (150-450) k/uL Lymphocytes # 0.8 L (1.0-4.8) k/uL PT (9.0-12.0) sec INR (<1.2) APTT (22.0-30.0) sec Sodium 131 L (137-145) mmol/L Chloride 96 L (98-107) mmol/L Plasma Lactic Acid Sincere (0.7-2.0) mmol/L Calcium 8.0 L (8.4-10.2) mg/dL Magnesium (1.6-2.3) mg/dL ALT (21-72) U/L Albumin (3.5-5.0) g/dL Urine Protein Trace H (Negative) Urine Ketones 1+ H (Negative) Crossmatch Diabetes panel 10/05/19 10/06/19 Range/Units 14:05 06:00 Sodium 131 L 131 L (137-145) mmol/L Potassium 4.1 4.4 (3.5-5.1) mmol/L Chloride 92 L 96 L (98-107) mmol/L Carbon Dioxide 30 28 (22-30) mmol/L BUN 18 16 (9-20) mg/dL Creatinine 1.01 0.79 (0.66-1.25) mg/dL Glucose 85 74 (74-99) mg/dL Calcium 8.4 8.0 L (8.4-10.2) mg/dL AST 30 (17-59) U/L ALT 20 L (21-72) U/L Alkaline Phosphatase 98 (38-126) U/L Total Protein 6.3 (6.3-8.2) g/dL Albumin 3.3 L (3.5-5.0) g/dL Calcium panel 10/05/19 10/06/19 Range/Units 14:05 06:00 Calcium 8.4 8.0 L (8.4-10.2) mg/dL Albumin 3.3 L (3.5-5.0) g/dL Pituitary panel 10/05/19 10/06/19 Range/Units 14:05 06:00 Sodium 131 L 131 L (137-145) mmol/L Potassium 4.1 4.4 (3.5-5.1) mmol/L Chloride 92 L 96 L (98-107) mmol/L Carbon Dioxide 30 28 (22-30) mmol/L BUN 18 16 (9-20) mg/dL Creatinine 1.01 0.79 (0.66-1.25) mg/dL Glucose 85 74 (74-99) mg/dL Calcium 8.4 8.0 L (8.4-10.2) mg/dL Adrenal panel 10/05/19 10/06/19 Range/Units 14:05 06:00 Sodium 131 L 131 L (137-145) mmol/L Potassium 4.1 4.4 (3.5-5.1) mmol/L Chloride 92 L 96 L (98-107) mmol/L Carbon Dioxide 30 28 (22-30) mmol/L BUN 18 16 (9-20) mg/dL Creatinine 1.01 0.79 (0.66-1.25) mg/dL Glucose 85 74 (74-99) mg/dL Calcium 8.4 8.0 L (8.4-10.2) mg/dL Total Bilirubin 1.0 (0.2-1.3) mg/dL AST 30 (17-59) U/L ALT 20 L (21-72) U/L Alkaline Phosphatase 98 (38-126) U/L Total Protein 6.3 (6.3-8.2) g/dL Albumin 3.3 L (3.5-5.0) g/dL
[2019-10-06 16:46] LABS: HCT 24.7 % (39.0-53.0); MCH 34.4 pg (25.0-35.0); MCHC 32.4 g/dL (31.0-37.0); Macrocytosis Moderate; Mean Platelet Volume 7.9; Platelet Count 111 k/uL (150-450); RBC 2.33 m/uL (4.30-5.90); RDW 15.8 % (11.5-15.5)
[2019-10-06 16:51] LABS: Glucose,Whole Blood 145 mg/dL (75-99)
[2019-10-06] MEDS: FUROSEMIDE 40 MG TAB PO SCH (17:01)
[2019-10-06 23:56] LABS: Glucose,Whole Blood 90 mg/dL (75-99)
[2019-10-07] MEDS: INSULIN ASPART (NovoLOG) 100 UNIT/ML VIAL SQ SCH ×4 (01:17→16:46)
[2019-10-07 04:25] LABS: Hemoglobin A1C 4.6 % (4.0-6.0)
[2019-10-07 04:57] LABS: Basophils % (A) 1 %; Eosinophils # (A) 0.2 k/uL (0-0.7); Eosinophils % (A) 4 %; HCT 25.1 % (39.0-53.0); HGB 7.9 gm/dL (13.0-17.5); Lymphocytes # (A) 0.8 k/uL (1.0-4.8); Lymphocytes % (A) 16 %; MCH 33.2 pg (25.0-35.0); MCHC 31.4 g/dL (31.0-37.0); MCV 105.6 fL (80.0-100.0); Macrocytosis Moderate; Mean Platelet Volume 7.1; Monocytes # (A) 0.4 k/uL (0-1.0); Monocytes % (A) 8 %; Neutrophils # (A) 3.5 k/uL (1.3-7.7); Neutrophils % (A) 69 %; Platelet Count 121 k/uL (150-450); RBC 2.37 m/uL (4.30-5.90); RDW 15.9 % (11.5-15.5); WBC 5.2 k/uL (3.8-10.6)
[2019-10-07 05:08] LABS: African American GFR (CKD) >90 (>60 ml/min/1.73 sqM); Anion Gap 5 mmol/L; Blood Urea Nitrogen 14 mg/dL (9-20); Calcium 8.1 mg/dL (8.4-10.2); Carbon Dioxide 31 mmol/L (22-30); Chloride 97 mmol/L (98-107); Glucose 84 mg/dL (74-99); Magnesium 1.7 mg/dL (1.6-2.3); Non-African American GFR(CKD) 88 (>60 ml/min/1.73 sqM); Potassium 3.8 mmol/L (3.5-5.1); Sodium 133 mmol/L (137-145)
[2019-10-07] MEDS: SODIUM CHLORIDE 0.9% 1,000 ML IV SCH ×3 (06:13→23:55)
[2019-10-07 06:17] LABS: Glucose,Whole Blood 91 mg/dL (75-99)
[2019-10-07] MEDS: THIAMINE 100 MG TAB PO SCH ×2 (07:01→16:19)
[2019-10-07] MEDS: CARVEDILOL 12.5 MG TAB PO SCH (07:48)
[2019-10-07] MEDS: PANTOPRAZOLE 40 MG/10 ML VIAL IV SCH (07:48)
[2019-10-07] MEDS: FUROSEMIDE 40 MG TAB PO SCH ×2 (07:48→16:19)
[2019-10-07] MEDS: LISINOPRIL 5 MG TAB PO SCH (07:48)
[2019-10-07] MEDS: FERROUS SULFATE 325 MG TAB PO SCH (07:50)
[2019-10-07] MEDS ORDERED: PEG 3350-NA SULF,BICARB,CL/KCL 4,000 ML BOTTLE PO ONE (12:00)
--- NOTE | 2019-10-07 12:15 | P.PN ---
Subjective Progress Note Date: 10/07/19 Principal diagnosis: Rectal bleeding This is a very pleasant 74-year-old gentleman who follows with Dr. Bowman as her primary care provider. He has a history of atrial fibrillation anticoagulated with Eliquis, coronary artery disease, diabetes mellitus, gastroesophageal reflux disease, hypertension, daily alcohol use. He is a lifelong nonsmoker. He presented here to the emergency room yesterday after developing bright red blood per rectum. He denied having any noted bloody bowel movements. States most of the blood comes while he is wiping. Yesterday however he is having trouble stopping the bleeding. He presented here to the emergency room for the same. No dizziness or lightheadedness. No chest pain or shortness of breath. Chest x-ray shows mild pulmonary congestion with cardiomegaly. Initial hemoglobin 7.1. Today 6.8. White count 4.2. Platelets 117,000. MCV 106.7. Sodium 131. Creatinine 0.79. He is seen today in consultation in the intensive care unit. He is awake and alert in no acute distress. Hemodynamically stable. On room air. One unit of packed red blood cells being transfused. Surgical consult pending. The patient is seen today 10/07/2019 in follow-up in the intensive care unit. He is currently sitting up in a chair at the bedside. Awake and alert in no acute distress. No shortness of breath. No chest pain. Maintaining O2 saturation in the mid 90s on 2 L/m per nasal cannula. He's been afebrile. Hemodynamically stable. No further rectal bleeding. He received 1 unit of packed red blood cells and current hemoglobin 7.9. White count 5.2. Platelets 121,000. Sodium 133. Creatinine 0.79. Plan is for colonoscopy tomorrow. Objective - Vital Signs Vital signs: Vital Signs Temp 98.0 F 10/07/19 08:00 Pulse 70 10/07/19 09:00 Resp 18 10/07/19 09:00 BP 144/92 10/07/19 09:00 Pulse Ox 95 10/07/19 09:00 Intake & Output 10/06/19 10/07/19 10/07/19 18:59 06:59 18:59 Intake Total 1410 1200 280 Output Total 1295 1000 Balance 115 200 280 Weight 111 kg Intake: IV 1000 1200 100 Magnesium Sulfate-D5w Pmx 600 1 gm In Dextrose/Water 1 100ml.bag @ 100 mls/hr IVPB Q1H [facility] Rx#: [id number] Sodium Chloride 0.9% 1, 400 1200 100 000 ml @ 100 mls/hr IV . Q10H [facility] Rx#:[id number] Intake, IV Titration 100 Amount Sodium Chloride 0.9% 1, 100 000 ml @ 100 mls/hr IV . Q10H [facility] Rx#:[id number] Oral 180 Blood Product 310 Rc Pheresis 2 As3 Unit 310 [id number] Output: Urine 1295 1000 Other: Voiding Method Urinal Urinal # Voids 0 - Exam GENERAL EXAM: Alert, pleasant 74-year-old gentleman, comfortable in no apparent distress. HEAD: Normocephalic. EYES: Normal reaction of pupils, equal size. NOSE: Clear with pink turbinates. THROAT: No erythema or exudates. NECK: No masses, no JVD. CHEST: No chest wall deformity. LUNGS: Equal air entry with faint crackles in the posterior bases. CVS: S1 and S2 normal with no audible murmur, regular rhythm. ABDOMEN: No hepatosplenomegaly, normal bowel sounds, no guarding or rigidity. SPINE: No scoliosis or deformity SKIN: No rashes CENTRAL NERVOUS SYSTEM: No focal deficits, tone is normal in all 4 extremities. EXTREMITIES: There is no peripheral edema. No clubbing, no cyanosis. Peripheral pulses are intact. - Labs CBC & Chem 7: 10/07/19 04:17 10/07/19 04:17 Labs: Abnormal Lab Results - Last 24 Hours (Table) 10/05/19 10/06/19 10/06/19 Range/Units 14:05 16:29 16:49 RBC 2.33 L (4.30-5.90) m/uL Hgb 8.0 L (13.0-17.5) gm/dL Hct 24.7 L (39.0-53.0) % MCV 106.0 H (80.0-100.0) fL RDW 15.8 H (11.5-15.5) % Plt Count 111 L (150-450) k/uL Lymphocytes # (1.0-4.8) k/uL Sodium (137-145) mmol/L Chloride (98-107) mmol/L Carbon Dioxide (22-30) mmol/L POC Glucose (mg/dL) 145 H (75-99) mg/dL Calcium (8.4-10.2) mg/dL Crossmatch See Detail 10/07/19 10/07/19 Range/Units 04:17 04:17 RBC 2.37 L (4.30-5.90) m/uL Hgb 7.9 L (13.0-17.5) gm/dL Hct 25.1 L (39.0-53.0) % MCV 105.6 H (80.0-100.0) fL RDW 15.9 H (11.5-15.5) % Plt Count 121 L (150-450) k/uL Lymphocytes # 0.8 L (1.0-4.8) k/uL Sodium 133 L (137-145) mmol/L Chloride 97 L (98-107) mmol/L Carbon Dioxide 31 H (22-30) mmol/L POC Glucose (mg/dL) (75-99) mg/dL Calcium 8.1 L (8.4-10.2) mg/dL Crossmatch Assessment and Plan Assessment: #1 Acute bright red blood per rectum, suspect hemorrhoids. #2 Acute blood loss anemia secondary to above with current hemoglobin 6.8, received 1 unit packed red blood cells.current hemoglobin 7.9. #3 Atrial fibrillation, anticoagulated with Eliquis. #4 Daily alcohol use. #5 Hypertension. #6 Gout. #7 History of iron deficiency anemia. Plan: The patient was seen and evaluated by Dr. Mariee. No further noted bleeding. Hemoglobin 7.9. Plan is for colonoscopy tomorrow. Continue to monitor hemoglobin. quick and normal saline at 100 ML's per hour. IV Protonix. We will continue to follow and make further recommendations based on his clinical status. I, the cosigning physician, performed a history & physical examination of the patient. Lungs sounds with few crackles in the posterior bases. Maintaining good O2 saturations in the 90s on 2 L/m per nasal cannula. I discussed the asse ssment and plan of care with my nurse practitioner, Savi Edmonds. I attest to the above consultation as dictated by her.
--- NOTE | 2019-10-07 12:23 | P.PN ---
Subjective Progress Note Date: 10/07/19 CHIEF COMPLAINT: GI bleed HISTORY OF PRESENT ILLNESS: Patient examined at the bedside with Dr. Slaughter. Patient denies any further episodes of rectal bleeding. Denies abdominal pain. Denies nausea or vomiting. Tolerating clear liquid diet. Hemoglobin 7.9 this morning. PHYSICAL EXAM: VITAL SIGNS: Reviewed. GENERAL: Well-developed in no acute distress. HEENT: No sclera icterus. Extraocular movements grossly intact. Moist buccal m ucosa. Head is atraumatic, normocephalic. ABDOMEN: Soft. Nondistended. Nontender. NEUROLOGIC: Alert and oriented. Cranial nerves II through XII grossly intact. ASSESSMENT: 1. Rectal bleeding, patient reports intermittent bright red blood per rectum over the last several months, but worse over last 2 days 2. Acute blood loss anemia PLAN: 1. Clear liquid diet. Nothing by mouth at midnight 2. GoLYTELY bowel prep 3. Continue to hold Eliquis 4. Monitor hemoglobin. Transfuse for hemoglobin less than 7.0 5. Patient to undergo colonoscopy with Dr. Slaughter tomorrow Nurse practitioner note has been reviewed by physician. Signing provider agrees with the documented findings, assessment, and plan of care. Objective - Vital Signs Vital signs: Vital Signs Temp 98.0 F 10/07/19 08:00 Pulse 70 10/07/19 09:00 Resp 18 10/07/19 09:00 BP 144/92 10/07/19 09:00 Pulse Ox 95 10/07/19 09:00 Intake & Output 10/06/19 10/07/19 10/07/19 18:59 06:59 18:59 Intake Total 1410 1200 280 Output Total 1295 1000 Balance 115 200 280 Weight 111 kg Intake: IV 1000 1200 100 Magnesium Sulfate-D5w Pmx 600 1 gm In Dextrose/Water 1 100ml.bag @ 100 mls/hr IVPB Q1H [facility] Rx#: [id number] Sodium Chloride 0.9% 1, 400 1200 100 000 ml @ 100 mls/hr IV . Q10H [facility] Rx#:[id number] Intake, IV Titration 100 Amount Sodium Chloride 0.9% 1, 100 000 ml @ 100 mls/hr IV . Q10H [facility] Rx#:[id number] Oral 180 Blood Product 310 Rc Pheresis 2 As3 Unit 310 [id number] Output: Urine 1295 1000 Other: Voiding Method Urinal Urinal # Voids 0 - Labs CBC & Chem 7: 10/07/19 04:17 10/07/19 04:17 Labs: Abnormal Lab Results - Last 24 Hours (Table) 10/05/19 10/06/19 10/06/19 Range/Units 14:05 16:29 16:49 RBC 2.33 L (4.30-5.90) m/uL Hgb 8.0 L (13.0-17.5) gm/dL Hct 24.7 L (39.0-53.0) % MCV 106.0 H (80.0-100.0) fL RDW 15.8 H (11.5-15.5) % Plt Count 111 L (150-450) k/uL Lymphocytes # (1.0-4.8) k/uL Sodium (137-145) mmol/L Chloride (98-107) mmol/L Carbon Dioxide (22-30) mmol/L POC Glucose (mg/dL) 145 H (75-99) mg/dL Calcium (8.4-10.2) mg/dL Crossmatch See Detail 10/07/19 10/07/19 Range/Units 04:17 04:17 RBC 2.37 L (4.30-5.90) m/uL Hgb 7.9 L (13.0-17.5) gm/dL Hct 25.1 L (39.0-53.0) % MCV 105.6 H (80.0-100.0) fL RDW 15.9 H (11.5-15.5) % Plt Count 121 L (150-450) k/uL Lymphocytes # 0.8 L (1.0-4.8) k/uL Sodium 133 L (137-145) mmol/L Chloride 97 L (98-107) mmol/L Carbon Dioxide 31 H (22-30) mmol/L POC Glucose (mg/dL) (75-99) mg/dL Calcium 8.1 L (8.4-10.2) mg/dL Crossmatch
[2019-10-07 13:39] LABS: Glucose,Whole Blood 177 mg/dL (75-99)
[2019-10-07] MEDS: MAGNESIUM SULFATE-D5W PMX 1 GM in DEXTROSE/WATER 1 100ML.BAG IVPB SCH (16:19)
[2019-10-07 16:41] LABS: Glucose,Whole Blood 129 mg/dL (75-99)
--- NOTE | 2019-10-07 21:59 | P.PN ---
Subjective Progress Note Date: 10/06/19 Principal diagnosis: Acute GI bleed Patient is a 74-year-old male with a known history of atrial fibrillation on Eliquis currently, diabetes type 2, hypertension and GERD came to ER with complaints of blood per rectum. Patient has been having symptoms of blood per rectum, bright red blood for the past 2-3 months. Today patient noticed blood clots and is bleeding more than usual and unable to come down at home. Patient presented to ER for further evaluation. Patient is a poor historian otherwise. Patient does have a history of previous colonoscopy in 2012. Denied any ab dominal pain. No nausea vomiting. No hematemesis. No dysuria or hematuria. No headache. Patient has been having bilateral lower the swelling chronically and is getting worse recently. Patient does take Lasix 40 mg twice daily at home. Denied any fever or chills. No cough or sputum production. Hemoglobin 8.0. Usually runs around 12 MCV 103 and platelets 132,000 Lactic acid 2.6, sodium 131 10/06/2019 Patient denied any chest pain or shortness of breath. Denied any active bleeding per rectum. Hemoglobin did drop to 6.8 this morning and will be transfused with 1 unit of PRBC. Patient was seen by general surgery and is planning for colonoscopy likely tomorrow. No fever no chills. No cough or sputum production. Continue to monitor his and his. Current medications reviewed. Objective - Vital Signs Vital signs: Vital Signs Temp 98 F 10/06/19 16:00 Pulse 58 L 10/06/19 17:00 Resp 29 H 10/06/19 17:00 BP 124/88 10/06/19 17:00 Pulse Ox 99 10/06/19 17:00 Intake & Output 10/06/19 10/06/19 10/07/19 06:59 18:59 06:59 Intake Total 1500 1410 Output Total 600 1295 Balance 900 115 Weight 111.9 kg Intake: IV 1000 Magnesium Sulfate-D5w Pmx 600 1 gm In Dextrose/Water 1 100ml.bag @ 100 mls/hr IVPB Q1H [facility] Rx#: [id number] Sodium Chloride 0.9% 1, 400 000 ml @ 100 mls/hr IV . Q10H [facility] Rx#:[id number] Intake, IV Titration 1500 100 Amount Magnesium Sulfate-D5w Pmx 300 1 gm In Dextrose/Water 1 100ml.bag @ 100 mls/hr IVPB Q1H [facility] Rx#: [id number] Sodium Chloride 0.9% 1, 1200 100 000 ml @ 100 mls/hr IV . Q10H [facility] Rx#:[id number] Blood Product 310 Rc Pheresis 2 As3 Unit 310 [id number] Output: Urine 600 1295 Other: Voiding Method Urinal # Voids 0 - Exam PHYSICAL EXAMINATION: Patient is lying in the bed comfortably, no acute distress, awake alert and oriented.. HEENT: Normocephalic. Neck is supple. Pupils reactive. Nostrils clear. Oral cavity is moist. Ears reveal no drainage. Neck reveals no JVD, carotid bruits, or thyromegaly. CHEST EXAMINATION: Trachea is central. Symmetrical expansion. Lung moreira clear to auscultation and percussion. CARDIAC: Normal S1, S2 with no gallops. No murmurs ABDOMEN: Soft. Bowel sounds normal. No organomegaly. No abdominal bruits. Extremities: reveal no edema. No clubbing or cyanosis Neurologically awake, alert, oriented x3 with well-coordinated movements. No focal deficits noted Skin: No rash or skin lesions. Psychiatric: Coperative. Nonsuicidal Musculoskeletal: No joint swelling or deformity. Normal range of motion. - Labs CBC & Chem 7: 10/07/19 04:17 10/07/19 04:17 Labs: Abnormal Lab Results - Last 24 Hours (Table) 10/05/19 10/06/19 10/06/19 Range/Units 14:05 00:24 04:50 RBC 2.06 L (4.30-5.90) m/uL Hgb 7.1 L (13.0-17.5) gm/dL Hct 21.9 L (39.0-53.0) % MCV 106.0 H (80.0-100.0) fL MCH (25.0-35.0) pg RDW (11.5-15.5) % Plt Count 114 L (150-450) k/uL Lymphocytes # (1.0-4.8) k/uL Sodium (137-145) mmol/L Chloride (98-107) mmol/L POC Glucose (mg/dL) (75-99) mg/dL Calcium (8.4-10.2) mg/dL Urine Protein Trace H (Negative) Urine Ketones 1+ H (Negative) Crossmatch See Detail 10/06/19 10/06/19 10/06/19 Range/Units 06:00 06:00 16:29 RBC 1.92 L 2.33 L (4.30-5.90) m/uL Hgb 6.8 L* 8.0 L (13.0-17.5) gm/dL Hct 20.5 L 24.7 L (39.0-53.0) % MCV 106.7 H 106.0 H (80.0-100.0) fL MCH 35.4 H (25.0-35.0) pg RDW 15.8 H (11.5-15.5) % Plt Count 117 L 111 L (150-450) k/uL Lymphocytes # 0.8 L (1.0-4.8) k/uL Sodium 131 L (137-145) mmol/L Chloride 96 L (98-107) mmol/L POC Glucose (mg/dL) (75-99) mg/dL Calcium 8.0 L (8.4-10.2) mg/dL Urine Protein (Negative) Urine Ketones (Negative) Crossmatch 10/06/19 Range/Units 16:49 RBC (4.30-5.90) m/uL Hgb (13.0-17.5) gm/dL Hct (39.0-53.0) % MCV (80.0-100.0) fL MCH (25.0-35.0) pg RDW (11.5-15.5) % Plt Count (150-450) k/uL Lymphocytes # (1.0-4.8) k/uL Sodium (137-145) mmol/L Chloride (98-107) mmol/L POC Glucose (mg/dL) 145 H (75-99) mg/dL Calcium (8.4-10.2) mg/dL Urine Protein (Negative) Urine Ketones (Negative) Crossmatch Assessment and Plan Assessment: Acute blood loss anemia secondary to lower GI bleed. Rectal mass cannot be excluded. Symptomatic anemia Atrial fibrillation paroxysmal . on anticoagulation with Eliquis Diabetes type 2 Hypovolemic hyponatremia Lactic acidosis Macrocytic anemia secondary to chronic alcohol use Uncontrolled hypertension GERD Alcohol abuse on daily basis GI and DVT prophylaxis. Plan: Patient will be continued on IV hydration and monitor H&H. Continue with thiamine and multivitamins and PPI. Gen. surgery has seen the patient and is planning for colonoscopy.. Continue with home blood pressure medications and monitor closely. Titrate blood pressure medications. Eliquis is on hold. Further recommendations based on the clinical course. Prognosis guarded at this time. Monitor for alcohol withdrawal symptoms Time with Patient: Greater than 30
--- NOTE | 2019-10-07 22:01 | P.PN ---
Subjective Progress Note Date: 10/07/19 Principal diagnosis: Acute GI bleed Patient is a 74-year-old male with a known history of atrial fibrillation on Eliquis currently, diabetes type 2, hypertension and GERD came to ER with complaints of blood per rectum. Patient has been having symptoms of blood per rectum, bright red blood for the past 2-3 months. Today patient noticed blood clots and is bleeding more than usual and unable to come down at home. Patient presented to ER for further evaluation. Patient is a poor historian otherwise. Patient does have a history of previous colonoscopy in 2012. Denied any ab dominal pain. No nausea vomiting. No hematemesis. No dysuria or hematuria. No headache. Patient has been having bilateral lower the swelling chronically and is getting worse recently. Patient does take Lasix 40 mg twice daily at home. Denied any fever or chills. No cough or sputum production. Hemoglobin 8.0. Usually runs around 12 MCV 103 and platelets 132,000 Lactic acid 2.6, sodium 131 10/06/2019 Patient denied any chest pain or shortness of breath. Denied any active bleeding per rectum. Hemoglobin did drop to 6.8 this morning and will be transfused with 1 unit of PRBC. Patient was seen by general surgery and is planning for colonoscopy likely tomorrow. No fever no chills. No cough or sputum production. Continue to monitor H&H. 10/07/2019 Patient is currently sitting in a chair comfortably. Denied any bleeding overnight. Hemoglobin did improve to 8.0 yesterday with 1 unit PRBC and currently hemoglobin level is 7.9 today. Preparation for endoscopy was started. General surgery is on board. Patient denied any fever or chills. Symptomatically did improve. No chest pain or generalized weakness. Current medications reviewed. Objective - Vital Signs Vital signs: Vital Signs Temp 98.0 F 10/07/19 08:00 Pulse 70 10/07/19 09:00 Resp 18 10/07/19 12:00 BP 144/92 10/07/19 09:00 Pulse Ox 95 10/07/19 09:00 Intake & Output 10/06/19 10/07/19 10/07/19 18:59 06:59 18:59 Intake Total 1410 1200 280 Output Total 1295 1000 800 Balance 115 200 -520 Weight 111 kg Intake: IV 1000 1200 100 Magnesium Sulfate-D5w Pmx 600 1 gm In Dextrose/Water 1 100ml.bag @ 100 mls/hr IVPB Q1H [facility] Rx#: [id number] Sodium Chloride 0.9% 1, 400 1200 100 000 ml @ 100 mls/hr IV . Q10H [facility] Rx#:[id number] Intake, IV Titration 100 Amount Sodium Chloride 0.9% 1, 100 000 ml @ 100 mls/hr IV . Q10H [facility] Rx#:[id number] Oral 180 Blood Product 310 Rc Pheresis 2 As3 Unit 310 [id number] Output: Urine 1295 1000 800 Other: Voiding Method Urinal Urinal # Voids 0 - Exam PHYSICAL EXAMINATION: Patient is lying in the bed comfortably, no acute distress, awake alert and oriented.. HEENT: Normocephalic. Neck is supple. Pupils reactive. Nostrils clear. Oral cavity is moist. Ears reveal no drainage. Neck reveals no JVD, carotid bruits, or thyromegaly. CHEST EXAMINATION: Trachea is central. Symmetrical expansion. Lung moreira clear to auscultation and percussion. CARDIAC: Normal S1, S2 with no gallops. No murmurs ABDOMEN: Soft. Bowel sounds normal. No organomegaly. No abdominal bruits. Extremities: reveal no edema. No clubbing or cyanosis Neurologically awake, alert, oriented x3 with well-coordinated movements. No focal deficits noted Skin: No rash or skin lesions. Psychiatric: Coperative. Nonsuicidal Musculoskeletal: No joint swelling or deformity. Normal range of motion. - Labs CBC & Chem 7: 10/07/19 04:17 10/07/19 04:17 Labs: Abnormal Lab Results - Last 24 Hours (Table) 10/06/19 10/06/19 10/07/19 Range/Units 16:29 16:49 04:17 RBC 2.33 L 2.37 L (4.30-5.90) m/uL Hgb 8.0 L 7.9 L (13.0-17.5) gm/dL Hct 24.7 L 25.1 L (39.0-53.0) % MCV 106.0 H 105.6 H (80.0-100.0) fL RDW 15.8 H 15.9 H (11.5-15.5) % Plt Count 111 L 121 L (150-450) k/uL Lymphocytes # 0.8 L (1.0-4.8) k/uL Sodium (137-145) mmol/L Chloride (98-107) mmol/L Carbon Dioxide (22-30) mmol/L POC Glucose (mg/dL) 145 H (75-99) mg/dL Calcium (8.4-10.2) mg/dL 10/07/19 10/07/19 Range/Units 04:17 13:38 RBC (4.30-5.90) m/uL Hgb (13.0-17.5) gm/dL Hct (39.0-53.0) % MCV (80.0-100.0) fL RDW (11.5-15.5) % Plt Count (150-450) k/uL Lymphocytes # (1.0-4.8) k/uL Sodium 133 L (137-145) mmol/L Chloride 97 L (98-107) mmol/L Carbon Dioxide 31 H (22-30) mmol/L POC Glucose (mg/dL) 177 H (75-99) mg/dL Calcium 8.1 L (8.4-10.2) mg/dL Assessment and Plan Assessment: Acute blood loss anemia secondary to lower GI bleed. Rectal mass cannot be excluded. Symptomatic anemia Atrial fibrillation paroxysmal . on anticoagulation with Eliquis Diabetes type 2 Hypovolemic hyponatremia Lactic acidosis Macrocytic anemia secondary to chronic alcohol use Uncontrolled hypertension GERD Alcohol abuse on daily basis GI and DVT prophylaxis. Plan: Patient will be continued on IV hydration and monitor H&H. Continue with thiamine and multivitamins and PPI. Gen. surgery has seen the patient and is planning for colonoscopy tomorrow.. Continue with home blood pressure medications and monitor closely. Titrate blood pressure medications. Eliquis is on hold. Further recommendations based on the clinical course. Prognosis guarded at this time. Monitor for alcohol withdrawal symptoms Time with Patient: Greater than 30
[2019-10-08 00:11] LABS: Glucose,Whole Blood 119 mg/dL (75-99)
[2019-10-08] MEDS: MAGNESIUM SULFATE-D5W PMX 1 GM in DEXTROSE/WATER 1 100ML.BAG IVPB SCH ×3 (02:23→13:24)
[2019-10-08 04:56] LABS: Basophils # (A) 0.1 k/uL (0-0.2); Basophils % (A) 1 %; Eosinophils # (A) 0.2 k/uL (0-0.7); Eosinophils % (A) 5 %; HCT 24.9 % (39.0-53.0); HGB 7.9 gm/dL (13.0-17.5); Lymphocytes # (A) 0.9 k/uL (1.0-4.8); Lymphocytes % (A) 18 %; MCH 34.1 pg (25.0-35.0); MCHC 31.9 g/dL (31.0-37.0); Macrocytosis Marked; Mean Platelet Volume 6.7; Monocytes # (A) 0.4 k/uL (0-1.0); Monocytes % (A) 8 %; Neutrophils # (A) 3.3 k/uL (1.3-7.7); Neutrophils % (A) 66 %; Platelet Count 130 k/uL (150-450); RBC 2.33 m/uL (4.30-5.90); RDW 15.8 % (11.5-15.5); WBC 5.1 k/uL (3.8-10.6)
[2019-10-08 05:07] LABS: African American GFR (CKD) >90 (>60 ml/min/1.73 sqM); Anion Gap 5 mmol/L; Blood Urea Nitrogen 10 mg/dL (9-20); Calcium 8.4 mg/dL (8.4-10.2); Carbon Dioxide 33 mmol/L (22-30); Chloride 97 mmol/L (98-107); Glucose 110 mg/dL (74-99); Magnesium 1.7 mg/dL (1.6-2.3); Non-African American GFR(CKD) >90 (>60 ml/min/1.73 sqM); Potassium 3.9 mmol/L (3.5-5.1); Sodium 135 mmol/L (137-145)
[2019-10-08 06:06] LABS: Glucose,Whole Blood 103 mg/dL (75-99)
[2019-10-08] MEDS: INSULIN ASPART (NovoLOG) 100 UNIT/ML VIAL SQ SCH ×5 (07:07→21:07)
[2019-10-08] MEDS: FUROSEMIDE 40 MG TAB PO SCH ×2 (07:26→15:26)
[2019-10-08] MEDS: CARVEDILOL 12.5 MG TAB PO SCH (07:26)
[2019-10-08] MEDS: FERROUS SULFATE 325 MG TAB PO SCH (07:26)
[2019-10-08] MEDS: THIAMINE 100 MG TAB PO SCH ×2 (07:26→17:45)
[2019-10-08] MEDS: PANTOPRAZOLE 40 MG/10 ML VIAL IV SCH (07:26)
[2019-10-08] MEDS: LISINOPRIL 5 MG TAB PO SCH (07:26)
[2019-10-08] MEDS ORDERED: LIDOCAINE 1% INJ 10MG/ML (20 ML MDV) ONE (09:55)
[2019-10-08] MEDS ORDERED: GLYCOPYRROLATE 0.2 MG/ML 2 ML VIAL ONE (09:55)
[2019-10-08] MEDS ORDERED: ePHEDrine SULFATE/0.9% NACL/PF 50 MG/5 ML SYRINGE IV ONE (09:55)
[2019-10-08] MEDS ORDERED: PROPOFOL 10 MG/ML 20 ML VIAL IV ONE (09:55)
[2019-10-08] MEDS ORDERED: IV FLUID CONTINUATION 1,000 ML IV ONE ×2 (09:56)
--- NOTE | 2019-10-08 10:24 | P.OP ---
Date of Procedure: 10/08/19 Preoperative Diagnosis: GI bleed Postoperative Diagnosis: Antral gastritis Multiple gastric polyps Diverticulosis Significant internal and external hemorrhoids Procedure(s) Performed: EGD Colonoscopy Anesthesia: MAC Surgeon: Devyn Slaughter Pathology: other (Antrum) Condition: stable Disposition: PACU Description of Procedure: The patient's placed on the endoscopy table in the lateral position. He received IV sedation. The gastroscope placed oropharynx and passed in the esophagus into the stomach. Scope was then placed through the pylorus. The first and second portion of the duodenum appeared normal. Scope was then brought back the antrum this was mildly inflamed a biopsy performed. Patient had a large number of gastric polyps. A random polyp was biopsied in the body of the stomach. There is no evidence of any upper GI bleed. The GE junction was at 38 7 is. There was a large hiatal hernia. The distal esophagus appeared normal. The proximal esophagus.. Scope was then withdrawn. Next digital rectal exam is performed which revealed bleeding from internal and external hemorrhoids. The flexible colonoscope was then placed patient anus and passed rotator colon. The ileocecal valve was visualized. The cecum, ascending and transverse colon appeared normal. In the descending and sigmoid colon there is moderate diverticular changes. Scope was then brought back the rectum and this appeared normal. Scope was withdrawn through the anus and there were significant internal hemorrhoids with evidence of blood and then external hemorrhoids noted. Scope was withdrawn for patient. It is presumed that his bleeding is due to his hemorrhoids.
[2019-10-08 12:50] LABS: Glucose,Whole Blood 161 mg/dL (75-99)
[2019-10-08] MEDS: SODIUM CHLORIDE 0.9% 1,000 ML IV SCH ×2 (13:09→23:59)
[2019-10-08 17:05] LABS: Glucose,Whole Blood 103 mg/dL (75-99)
[2019-10-08 20:51] LABS: Glucose,Whole Blood 125 mg/dL (75-99)
[2019-10-09 06:02] VITALS: RESP 18
[2019-10-09 06:33] LABS: HCT 24.6 % (39.0-53.0); HGB 7.9 gm/dL (13.0-17.5); Hypochromasia Slight; MCH 34.7 pg (25.0-35.0); MCHC 32.2 g/dL (31.0-37.0); Macrocytosis Marked; Mean Platelet Volume 6.9; Platelet Count 117 k/uL (150-450); RBC 2.28 m/uL (4.30-5.90); RDW 15.8 % (11.5-15.5); WBC 4.9 k/uL (3.8-10.6)
[2019-10-09 06:38] LABS: MCV 107.8 fL (80.0-100.0)
[2019-10-09 07:13] LABS: Glucose,Whole Blood 94 mg/dL (75-99)
[2019-10-09] MEDS: INSULIN ASPART (NovoLOG) 100 UNIT/ML VIAL SQ SCH ×4 (08:20→20:38)
[2019-10-09] MEDS: CARVEDILOL 12.5 MG TAB PO SCH (08:26)
[2019-10-09] MEDS: LISINOPRIL 5 MG TAB PO SCH (08:26)
[2019-10-09] MEDS: PANTOPRAZOLE 40 MG TABLET PO SCH (08:26)
[2019-10-09] MEDS: FUROSEMIDE 40 MG TAB PO SCH ×2 (08:26→17:12)
[2019-10-09] MEDS: THIAMINE 100 MG TAB PO SCH ×2 (08:27→17:12)
[2019-10-09] MEDS: FERROUS SULFATE 325 MG TAB PO SCH (08:27)
[2019-10-09] MEDS: SODIUM CHLORIDE 0.9% 1,000 ML IV SCH (08:27)
--- NOTE | 2019-10-09 10:37 | P.PN ---
Progress Note - Text Progress Note Date: 10/09/19 Patient's hemoglobin is 7.9. He states last night 2:00 the morning had a small bowel movement with some blood in it. He's had no further bleeding. On exam his vital signs are stable. His abdomen soft. Patient has leading hemorrhoids. He'll be observed for another 24-48 hours. He should not resume antiplatelet therapy.
[2019-10-09 12:03] LABS: Glucose,Whole Blood 133 mg/dL (75-99)
[2019-10-09 17:22] LABS: Glucose,Whole Blood 116 mg/dL (75-99)
[2019-10-09 20:44] LABS: Glucose,Whole Blood 156 mg/dL (75-99)
[2019-10-09] MEDS ORDERED: MELATONIN 3 MG TABLET PO SCH (21:00)
--- NOTE | 2019-10-10 00:37 | P.PN ---
Subjective Progress Note Date: 10/08/19 Principal diagnosis: Acute GI bleed Patient is a 74-year-old male with a known history of atrial fibrillation on Eliquis currently, diabetes type 2, hypertension and GERD came to ER with complaints of blood per rectum. Patient has been having symptoms of blood per rectum, bright red blood for the past 2-3 months. Today patient noticed blood clots and is bleeding more than usual and unable to come down at home. Patient presented to ER for further evaluation. Patient is a poor historian otherwise. Patient does have a history of previous colonoscopy in 2012. Denied any ab dominal pain. No nausea vomiting. No hematemesis. No dysuria or hematuria. No headache. Patient has been having bilateral lower the swelling chronically and is getting worse recently. Patient does take Lasix 40 mg twice daily at home. Denied any fever or chills. No cough or sputum production. Hemoglobin 8.0. Usually runs around 12 MCV 103 and platelets 132,000 Lactic acid 2.6, sodium 131 10/06/2019 Patient denied any chest pain or shortness of breath. Denied any active bleeding per rectum. Hemoglobin did drop to 6.8 this morning and will be transfused with 1 unit of PRBC. Patient was seen by general surgery and is planning for colonoscopy likely tomorrow. No fever no chills. No cough or sputum production. Continue to monitor H&H. 10/07/2019 Patient is currently sitting in a chair comfortably. Denied any bleeding overnight. Hemoglobin did improve to 8.0 yesterday with 1 unit PRBC and currently hemoglobin level is 7.9 today. Preparation for endoscopy was started. General surgery is on board. Patient denied any fever or chills. Symptomatically did improve. No chest pain or generalized weakness. 10/08/2017 Patient is currently awake alert and oriented 3. Hemoglobin 7.9. Patient is status post EGD and colonoscopy. Showed Antral gastritis Multiple gastric polyps Diverticulosis Significant internal and external hemorrhoids No active bleeding was noted. Continue to monitor hemoglobin and general surgery is following. Current medications reviewed. Objective - Vital Signs Vital signs: Vital Signs Temp 97.8 F 10/08/19 13:23 Pulse 56 L 10/08/19 13:23 Resp 16 10/08/19 13:23 BP 112/64 10/08/19 13:23 Pulse Ox 96 10/08/19 15:43 Intake & Output 10/08/19 10/08/19 10/09/19 06:59 18:59 06:59 Intake Total 200 840 Balance 200 840 Intake: IV 200 300 Sodium Chloride 0.9% 1, 200 000 ml @ 100 mls/hr IV . Q10H [facility] Rx#:[id number] Oral 540 Other: Voiding Method Urinal # Voids 1 # Bowel Movements 1 - Exam PHYSICAL EXAMINATION: Patient is lying in the bed comfortably, no acute distress, awake alert and oriented.. HEENT: Normocephalic. Neck is supple. Pupils reactive. Nostrils clear. Oral cavity is moist. Ears reveal no drainage. Neck reveals no JVD, carotid bruits, or thyromegaly. CHEST EXAMINATION: Trachea is central. Symmetrical expansion. Lung moreira clear to auscultation and percussion. CARDIAC: Normal S1, S2 with no gallops. No murmurs ABDOMEN: Soft. Bowel sounds normal. No organomegaly. No abdominal bruits. Extremities: reveal no edema. No clubbing or cyanosis Neurologically awake, alert, oriented x3 with well-coordinated movements. No focal deficits noted Skin: No rash or skin lesions. Psychiatric: Coperative. Nonsuicidal Musculoskeletal: No joint swelling or deformity. Normal range of motion. - Labs CBC & Chem 7: 10/09/19 05:33 10/08/19 04:31 Labs: Abnormal Lab Results - Last 24 Hours (Table) 10/08/19 10/08/19 10/08/19 Range/Units 00:09 04:31 04:31 RBC 2.33 L (4.30-5.90) m/uL Hgb 7.9 L (13.0-17.5) gm/dL Hct 24.9 L (39.0-53.0) % MCV 107.0 H (80.0-100.0) fL RDW 15.8 H (11.5-15.5) % Plt Count 130 L (150-450) k/uL Lymphocytes # 0.9 L (1.0-4.8) k/uL Macrocytosis Marked A Sodium 135 L (137-145) mmol/L Chloride 97 L (98-107) mmol/L Carbon Dioxide 33 H (22-30) mmol/L Glucose 110 H (74-99) mg/dL POC Glucose (mg/dL) 119 H (75-99) mg/dL 10/08/19 10/08/19 10/08/19 Range/Units 06:04 12:30 17:02 RBC (4.30-5.90) m/uL Hgb (13.0-17.5) gm/dL Hct (39.0-53.0) % MCV (80.0-100.0) fL RDW (11.5-15.5) % Plt Count (150-450) k/uL Lymphocytes # (1.0-4.8) k/uL Macrocytosis Sodium (137-145) mmol/L Chloride (98-107) mmol/L Carbon Dioxide (22-30) mmol/L Glucose (74-99) mg/dL POC Glucose (mg/dL) 103 H 161 H 103 H (75-99) mg/dL 10/08/19 Range/Units 20:37 RBC (4.30-5.90) m/uL Hgb (13.0-17.5) gm/dL Hct (39.0-53.0) % MCV (80.0-100.0) fL RDW (11.5-15.5) % Plt Count (150-450) k/uL Lymphocytes # (1.0-4.8) k/uL Macrocytosis Sodium (137-145) mmol/L Chloride (98-107) mmol/L Carbon Dioxide (22-30) mmol/L Glucose (74-99) mg/dL POC Glucose (mg/dL) 125 H (75-99) mg/dL Assessment and Plan Assessment: Acute blood loss anemia secondary to lower GI bleed. Status post EGD and colonoscopy.. Symptomatic anemia. Improving now Atrial fibrillation paroxysmal . on anticoagulation with Eliquis Diabetes type 2 Hypovolemic hyponatremia Lactic acidosis Macrocytic anemia secondary to chronic alcohol use Uncontrolled hypertension GERD Alcohol abuse on daily basis GI and DVT prophylaxis. Plan: Patient will be continued on IV hydration and monitor H&H. Continue with thiamine and multivitamins and PPI. Surgery is following. Status post EGD and colonoscopy. Continue with home blood pressure medications and monitor closely. Titrate blood pressure medications. Eliquis is on hold. Further recommendations based on the clinical course. Prognosis guarded at this time. Monitor for alcohol withdrawal symptoms Time with Patient: Greater than 30
--- NOTE | 2019-10-10 00:38 | P.PN ---
Subjective Progress Note Date: 10/09/19 Principal diagnosis: Acute GI bleed Patient is a 74-year-old male with a known history of atrial fibrillation on Eliquis currently, diabetes type 2, hypertension and GERD came to ER with complaints of blood per rectum. Patient has been having symptoms of blood per rectum, bright red blood for the past 2-3 months. Today patient noticed blood clots and is bleeding more than usual and unable to come down at home. Patient presented to ER for further evaluation. Patient is a poor historian otherwise. Patient does have a history of previous colonoscopy in 2012. Denied any ab dominal pain. No nausea vomiting. No hematemesis. No dysuria or hematuria. No headache. Patient has been having bilateral lower the swelling chronically and is getting worse recently. Patient does take Lasix 40 mg twice daily at home. Denied any fever or chills. No cough or sputum production. Hemoglobin 8.0. Usually runs around 12 MCV 103 and platelets 132,000 Lactic acid 2.6, sodium 131 10/06/2019 Patient denied any chest pain or shortness of breath. Denied any active bleeding per rectum. Hemoglobin did drop to 6.8 this morning and will be transfused with 1 unit of PRBC. Patient was seen by general surgery and is planning for colonoscopy likely tomorrow. No fever no chills. No cough or sputum production. Continue to monitor H&H. 10/07/2019 Patient is currently sitting in a chair comfortably. Denied any bleeding overnight. Hemoglobin did improve to 8.0 yesterday with 1 unit PRBC and currently hemoglobin level is 7.9 today. Preparation for endoscopy was started. General surgery is on board. Patient denied any fever or chills. Symptomatically did improve. No chest pain or generalized weakness. 10/08/2019 Patient is currently awake alert and oriented 3. Hemoglobin 7.9. Patient is status post EGD and colonoscopy. Showed Antral gastritis Multiple gastric polyps Diverticulosis Significant internal and external hemorrhoids No active bleeding was noted. Continue to monitor hemoglobin and general surgery is following. 10/09/2019 Patient is lying in the bed comfortably. Patient did have some dried blood noted in the toilet today. Hemoglobin is stable at 7.9. General surgery is following. No complaints of abdominal pain or rectal pain. No dizziness or lightheadedness. No complaints of chest pain or shortness of breath. Eliquis is on hold. Current medications reviewed. Objective - Vital Signs Vital signs: Vital Signs Temp 98.2 F 10/09/19 14:38 Pulse 73 10/09/19 14:38 Resp 18 10/09/19 14:38 BP 145/56 10/09/19 14:38 Pulse Ox 98 10/09/19 14:38 Intake & Output 10/08/19 10/09/19 10/09/19 18:59 06:59 18:59 Intake Total 840 100 400 Balance 840 100 400 Intake: IV 300 100 Sodium Chloride 0.9% 1, 100 000 ml @ 100 mls/hr IV . Q10H [facility] Rx#:[id number] Oral 540 400 Other: # Voids 1 1 5 # Bowel Movements 1 3 - Exam PHYSICAL EXAMINATION: Patient is lying in the bed comfortably, no acute distress, awake alert and oriented.. HEENT: Normocephalic. Neck is supple. Pupils reactive. Nostrils clear. Oral cavity is moist. Ears reveal no drainage. Neck reveals no JVD, carotid bruits, or thyromegaly. CHEST EXAMINATION: Trachea is central. Symmetrical expansion. Lung moreira clear to auscultation and percussion. CARDIAC: Normal S1, S2 with no gallops. No murmurs ABDOMEN: Soft. Bowel sounds normal. No organomegaly. No abdominal bruits. Extremities: reveal no edema. No clubbing or cyanosis Neurologically awake, alert, oriented x3 with well-coordinated movements. No focal deficits noted Skin: No rash or skin lesions. Psychiatric: Coperative. Nonsuicidal Musculoskeletal: No joint swelling or deformity. Normal range of motion. - Labs CBC & Chem 7: 10/09/19 05:33 10/08/19 04:31 Labs: Abnormal Lab Results - Last 24 Hours (Table) 10/08/19 10/09/19 10/09/19 Range/Units 20:37 05:33 11:47 RBC 2.28 L (4.30-5.90) m/uL Hgb 7.9 L (13.0-17.5) gm/dL Hct 24.6 L (39.0-53.0) % MCV 107.8 H (80.0-100.0) fL RDW 15.8 H (11.5-15.5) % Plt Count 117 L (150-450) k/uL Macrocytosis Marked A POC Glucose (mg/dL) 125 H 133 H (75-99) mg/dL 10/09/19 Range/Units 17:00 RBC (4.30-5.90) m/uL Hgb (13.0-17.5) gm/dL Hct (39.0-53.0) % MCV (80.0-100.0) fL RDW (11.5-15.5) % Plt Count (150-450) k/uL Macrocytosis POC Glucose (mg/dL) 116 H (75-99) mg/dL Assessment and Plan Assessment: Acute blood loss anemia secondary to lower GI bleed. Status post EGD and colonoscopy.. Symptomatic anemia. Improving now Atrial fibrillation paroxysmal . on anticoagulation with Eliquis Diabetes type 2 Hypovolemic hyponatremia Lactic acidosis Macrocytic anemia secondary to chronic alcohol use. B12 within normal limits. Uncontrolled hypertension GERD Alcohol abuse on daily basis GI and DVT prophylaxis. Plan: Patient will be continued on IV hydration and monitor H&H. Continue with thiamine and multivitamins and PPI. Surgery is following. Status post EGD and colonoscopy. Continue with home blood pressure medications and monitor closely. Titrate blood pressure medications. Eliquis is on hold. Further recommendations based on the clinical course. Prognosis guarded at this time. Monitor for alcohol withdrawal symptoms Time with Patient: Greater than 30
[2019-10-10 05:45] VITALS: BP 147/83; PULSE 87; TEMP 97.9
[2019-10-10 07:27] LABS: Glucose,Whole Blood 103 mg/dL (75-99)
[2019-10-10] MEDS: INSULIN ASPART (NovoLOG) 100 UNIT/ML VIAL SQ SCH ×2 (07:35→11:54)
[2019-10-10 07:53] LABS: HCT 25.1 % (39.0-53.0); HGB 8.2 gm/dL (13.0-17.5); Hypochromasia Slight; MCHC 32.8 g/dL (31.0-37.0); MCV 106.9 fL (80.0-100.0); Macrocytosis Marked; Mean Platelet Volume 6.7; Platelet Count 125 k/uL (150-450); RBC 2.34 m/uL (4.30-5.90); RDW 15.8 % (11.5-15.5); WBC 5.6 k/uL (3.8-10.6)
[2019-10-10] MEDS: LISINOPRIL 5 MG TAB PO SCH (08:41)
[2019-10-10] MEDS: FERROUS SULFATE 325 MG TAB PO SCH (08:41)
[2019-10-10] MEDS: PANTOPRAZOLE 40 MG TABLET PO SCH (08:41)
[2019-10-10] MEDS: CARVEDILOL 12.5 MG TAB PO SCH (08:41)
[2019-10-10] MEDS: THIAMINE 100 MG TAB PO SCH (08:41)
[2019-10-10] MEDS: FUROSEMIDE 40 MG TAB PO SCH (08:41)
--- NOTE | 2019-10-10 09:57 | P.PN ---
Progress Note - Text Progress Note Date: 10/10/19 The patient's hemoglobin remained stable 8.2. He's had no further bleeding. On exam his vital signs are stable. His abdomen soft. Lower GI bleed related to hemorrhoids. Patient will remain off of antiplatelet therapy. He'll be most likely discharge home tomorrow.
[2019-10-10 11:42] LABS: Glucose,Whole Blood 95 mg/dL (75-99)
--- NOTE | 2019-10-14 21:23 | P.DS ---
Providers Date of admission: 10/05/19 15:22 Expected date of discharge: 10/10/19 Attending physician: Gisele Moscoso Consults: 10/05/19 15:22 Consult Physician Stat Consulting Provider: Devyn Slaughter Consult Reason/Comments: acute hematochezia, ABLA Do you want consulting provider notified?: Already Contacted 10/05/19 15:42 Consult Physician Stat Consulting Provider: Jerod Mariee Consult Reason/Comments: acute GI bleed Do you want consulting provider notified?: Already Contacted Primary care physician: Jesika Bowman Hospital Course: Discharge diagnosis Acute blood loss anemia secondary to lower GI bleed. Status post EGD and colonoscopy.. Symptomatic anemia. Improving now Atrial fibrillation paroxysmal . on anticoagulation with Eliquis Diabetes type 2 Hypovolemic hyponatremia Lactic acidosis Macrocytic anemia secondary to chronic alcohol use. B12 within normal limits. Uncontrolled hypertension GERD Alcohol abuse on daily basis GI and DVT prophylaxis. Hospital course Patient is a 74-year-old male with a known history of atrial fibrillation on Eliquis currently, diabetes type 2, hypertension and GERD came to ER with complaints of blood per rectum. Patient has been having symptoms of blood per rectum, bright red blood for the past 2-3 months. Today patient noticed blood clots and is bleeding more than usual and unable to come down at home. Patient presented to ER for further evaluation. Patient is a poor historian otherwise. Patient does have a history of previous colonoscopy in 2012. Denied any abdominal pain. No nausea vomiting. No hematemesis. No dysuria or hematuria. No headache. Patient has been having bilateral lower the swelling chronically and is getting worse recently. Patient does take Lasix 40 mg twice daily at home. Denied any fever or chills. No cough or sputum production. Hemoglobin 8.0. Usually runs around 12 MCV 103 and platelets 132,000 Lactic acid 2.6, sodium 131 10/06/2019 Patient denied any chest pain or shortness of breath. Denied any active bleeding per rectum. Hemoglobin did drop to 6.8 this morning and will be transfused with 1 unit of PRBC. Patient was seen by general surgery and is planning for colonoscopy likely tomorrow. No fever no chills. No cough or sputum production. Continue to monitor H&H. 10/07/2019 Patient is currently sitting in a chair comfortably. Denied any bleeding overn ight. Hemoglobin did improve to 8.0 yesterday with 1 unit PRBC and currently hemoglobin level is 7.9 today. Preparation for endoscopy was started. General surgery is on board. Patient denied any fever or chills. Symptomatically did improve. No chest pain or generalized weakness. 10/08/2019 Patient is currently awake alert and oriented 3. Hemoglobin 7.9. Patient is status post EGD and colonoscopy. Showed Antral gastritis Multiple gastric polyps Diverticulosis Significant internal and external hemorrhoids No active bleeding was noted. Continue to monitor hemoglobin and general surg jason is following. 10/09/2019 Patient is lying in the bed comfortably. Patient did have some dried blood noted in the toilet today. Hemoglobin is stable at 7.9. General surgery is following. No complaints of abdominal pain or rectal pain. No dizziness or lightheadedness. No complaints of chest pain or shortness of breath. Eliquis is on hold. 10/10/2019 Patient is currently sitting in a chair comfortably. Denied any complaints of active lower GI/rectal bleeding. Hemoglobin is stable at 8.2 today. No complaints of dizziness or lightheadedness. No chest pain or shortness of breath. No abdominal pain. Eliquis will be held and patient was advised to follow-up with in the clinic 1 week to restart on blood thinners. Patient wants to be discharged home today. Hemodynamically stable. Patient was cleared by general surgery. PHYSICAL EXAMINATION: Patient is lying in the bed comfortably, no acute distress, awake alert and oriented.. HEENT: Normocephalic. Neck is supple. Pupils reactive. Nostrils clear. Oral cavity is moist. Ears reveal no drainage. Neck reveals no JVD, carotid bruits, or thyromegaly. CHEST EXAMINATION: Trachea is central. Symmetrical expansion. Lung moreira clear to auscultation and percussion. CARDIAC: Normal S1, S2 with no gallops. No murmurs ABDOMEN: Soft. Bowel sounds normal. No organomegaly. No abdominal bruits. Extremities: reveal no edema. No clubbing or cyanosis Neurologically awake, alert, oriented x3 with well-coordinated movements. No focal deficits noted Skin: No rash or skin lesions. Psychiatric: Coperative. Nonsuicidal Musculoskeletal: No joint swelling or deformity. Normal range of motion. Discharge vitals reviewed. Patient Condition at Discharge: Serious Plan - Discharge Summary New Discharge Prescriptions: New Multivitamin [Multivitamins Adult Gummies] 1 each PO DAILY #30 tablet Thiamine [Vitamin B-1] 100 mg PO BID-W/MEALS #30 tab Continue Omeprazole 20 mg PO QAM Furosemide [Lasix] 40 mg PO BID Ferrous Sulfate [Iron (65 MG Elemental)] 325 mg PO QAM Enalapril [Vasotec] 2.5 mg PO DAILY Carvedilol 25 mg PO QAM Allopurinol [Zyloprim] 100 mg PO QAM [place]-3 Fatty Acids [[place]-3] 1,000 mg PO QAM Discontinued Meloxicam [Mobic] 7.5 mg PO QAM Apixaban [Eliquis] 5 mg PO BID Discharge Medication List Allopurinol [Zyloprim] 100 mg PO QAM 10/05/19 [History] Carvedilol 25 mg PO QAM 10/05/19 [History] Enalapril [Vasotec] 2.5 mg PO DAILY 10/05/19 [History] Ferrous Sulfate [Iron (65 MG Elemental)] 325 mg PO QAM 10/05/19 [History] Furosemide [Lasix] 40 mg PO BID 10/05/19 [History] [place] Fatty Acids [[place]-3] 1,000 mg PO QAM 10/05/19 [History] Omeprazole 20 mg PO QAM 10/05/19 [History] Multivitamin [Multivitamins Adult Gummies] 1 each PO DAILY #30 tablet 10/10/19 [Rx] Thiamine [Vitamin B-1] 100 mg PO BID-W/MEALS #30 tab 10/10/19 [Rx] Follow up Appointment(s)/Referral(s): Jesika Bowman MD [Primary Care Provider] - 1-2 days Devyn Slaughter MD [STAFF PHYSICIAN] - 1 Week Patient Instructions/Handouts: Hemorrhoids (DC), Rectal Bleeding (DC) Activity/Diet/Wound Care/Special Instructions: Hold eliquis until follow-up with Dr. Slaughter. Discharge Disposition: HOME SELF-CARE
== END 2019-10-10 13:08 | disposition home or self-care (01) | DRG 394 ==
LOC: EC 12:53 → 3SCARD 15:22 → 2SICU 15:52 → 4MS4W 10-08 06:47
PROVIDERS: ADMIT Internal Medicine; ATTEND Internal Medicine
PROC: 30233N1 Transfusion of Nonautologous Red Blood Cells into Peripheral Vein, Percutaneous Approach (ICD-10-PCS; 2019-10-06)
PROC: 0DJD8ZZ Inspection of Lower Intestinal Tract, Via Natural or Artificial Opening Endoscopic (ICD-10-PCS; 2019-10-08)
PROC: 0DB68ZX Excision of Stomach, Via Natural or Artificial Opening Endoscopic, Diagnostic (ICD-10-PCS; principal; 2019-10-08 11:15)
PROC: 0DB78ZX Excision of Stomach, Pylorus, Via Natural or Artificial Opening Endoscopic, Diagnostic (ICD-10-PCS; 2019-10-08 11:15)
DX: K64.8 Other hemorrhoids (principal); D62 Acute posthemorrhagic anemia; E87.1 Hypo-osmolality and hyponatremia; E87.2 Acidosis; I48.0 Paroxysmal atrial fibrillation; E86.1 Hypovolemia; E11.9 Type 2 diabetes mellitus without complications; D53.9 Nutritional anemia, unspecified; I11.9 Hypertensive heart disease without heart failure; K64.4 Residual hemorrhoidal skin tags; K29.70 Gastritis, unspecified, without bleeding; K31.7 Polyp of stomach and duodenum; K44.9 Diaphragmatic hernia without obstruction or gangrene; K57.30 Diverticulosis of large intestine without perforation or abscess without bleeding; K21.9 Gastro-esophageal reflux disease without esophagitis; F10.10 Alcohol abuse, uncomplicated; I25.10 Atherosclerotic heart disease of native coronary artery without angina pectoris; M10.9 Gout, unspecified; Z79.01 Long term (current) use of anticoagulants; Z79.1 Long term (current) use of non-steroidal anti-inflammatories (NSAID); Z79.899 Other long term (current) drug therapy; Z98.49 Cataract extraction status, unspecified eye; Z98.890 Other specified postprocedural states; Z83.3 Family history of diabetes mellitus
CPT/HCPCS: 36415; 43239; 45378; 71045; 80048; 80053; 81003; 82272; 82607; 83036; 83605; 83690; 83735; 85025; 85027; 85610; 85730; 86850; 86900; 86901; 86920; 88305; 94760; 96360; 99284

== ENCOUNTER 2019-10-11 10:27 | Inpatient (IN) | payer MEDICARE ==
[2019-10-11] MEDS ORDERED: SODIUM CHLORIDE 0.9% 500 ML 500 ML IV STA (10:37)
[2019-10-11] MEDS ORDERED: SODIUM CHLORIDE 0.9% 1,000 ML IV STA ×2 (10:37→11:30)
[2019-10-11] MEDS ORDERED: PANTOPRAZOLE 40 MG/10 ML VIAL IVP STA (10:38)
--- NOTE | 2019-10-11 10:42 | ED ---
General Adult HPI - General Stated complaint: Cardiac Arrest Time Seen by Provider: 10/11/19 10:28 Source: EMS, RN notes reviewed, old records reviewed (Patient recently in the hospital with concern for GI hemorrhage.) Mode of arrival: EMS Limitations: altered mental status, physical limitation - History of Present Illness Initial comments: Patient is a 74-year-old male presenting to the emergency department by cardiac arrest by EMS. Patient is unresponsive and provides no history. EMS states patient was just recently discharged from the hospital. Patient reportedly was not feeling well and was going to drive come back to the hospital. Patient did not pay get past the driveway. There was not significant damage to the vehicle. Fire department found patient unresponsive and pulseless and CPR was started. Patient has been and PEA and asystole intermittently with occasional return of circulation over the past 40 minutes prior to arrival. Patient did have return of pulse prior to arrival to emergency department. Patient is intubated - Related Data Home Medications Medication Instructions Recorded Confirmed Allopurinol [Zyloprim] 100 mg PO QAM 10/05/19 10/11/19 Carvedilol 25 mg PO QAM 10/05/19 10/11/19 Enalapril [Vasotec] 2.5 mg PO DAILY 10/05/19 10/11/19 Ferrous Sulfate [Iron (65 MG 325 mg PO QAM 10/05/19 10/11/19 Elemental)] Furosemide [Lasix] 40 mg PO BID 10/05/19 10/11/19 [place]-3 Fatty Acids [[place]-3] 1,000 mg PO QAM 10/05/19 10/11/19 Omeprazole 20 mg PO QAM 10/05/19 10/11/19 Previous Rx's Medication Instructions Recorded Multivitamin [Multivitamins Adult 1 each PO DAILY #30 tablet 10/10/19 Gummies] Thiamine [Vitamin B-1] 100 mg PO BID-W/MEALS #30 tab 10/10/19 Allergies Allergy/AdvReac Type Severity Reaction Status Date / Time No Known Allergies Allergy Verified 10/11/19 11:10 Review of Systems ROS Statement: Those systems with pertinent positive or pertinent negative responses have been documented in the HPI. ROS Other: All systems not noted in ROS Statement are negative. Limitations: ROS unobtainable due to patients medical condition Past Medical History Past Medical History: Atrial Fibrillation, Coronary Artery Disease (CAD), Diabetes Mellitus, GERD/Reflux, Hypertension Additional Past Medical History / Comment(s): low hgb, gout History of Any Multi-Drug Resistant Organisms: None Reported Additional Past Surgical History / Comment(s): hip, cataracts Past Anesthesia/Blood Transfusion Reactions: No Reported Reaction Past Psychological History: No Psychological Hx Reported Smoking Status: Never smoker Past Alcohol Use History: Daily Past Drug Use History: None Reported - Past Family History Father Family Medical History: Diabetes Mellitus Mother Family Medical History: No Reported History General Exam Limitations: altered mental status, physical limitation General appearance: obtunded, other (Intubated) Head exam: Present: atraumatic Eye exam: Present: other (Pupils sluggish) ENT exam: Present: other (Intubated) Neck exam: Present: other (C-collar present) Respiratory exam: Present: normal lung sounds bilaterally Cardiovascular Exam: Present: irregular rhythm Expanded Peripheral pulses: 1+: Dorsalis Pedis (R), Dorsalis Pedis (L), 2+: Carotid (R), Carotid (L), Radial (R), Radial (L), Femoral (R), Femoral (L) GI/Abdominal exam: Present: soft. Absent: tenderness, guarding Extremities exam: Present: full ROM, pedal edema Neurological exam: Present: altered, other (Unresponsive) Expanded Eye Response: (1) no response Motor Response: (1) no motor response Verbal Response: (1) no verbal response Psychiatric exam: Present: other (Unresponsive) Skin exam: Present: normal color Course Vital Signs 10/11/19 10/11/19 10/11/19 10:27 10:47 11:09 Temperature 97.4 F L Pulse Rate 77 73 Respiratory 16 16 14 Rate Blood Pressure 116/106 106/76 O2 Sat by Pulse 98 Oximetry 10/11/19 10/11/19 10/11/19 11:17 11:54 12:03 Temperature Pulse Rate 68 71 70 Respiratory 16 16 16 Rate Blood Pressure 109/71 105/73 116/71 O2 Sat by Pulse 97 99 99 Oximetry - Reevaluation(s) Reevaluation #1: 10/11/19 11:29 Patient reevaluated and unchanged. Family is present and updated. They state jose e sandra has been off Eliquis for the past week. 11/18/19 11:52 Case was discussed with Dr. paz, who will admit covering for Dr. Bowman. 10/11/19 13:02 Case was earlier also discussed with Dr. Silvestre who did come evaluate patient. Case was also discussed with Dr. Slaughter. Patient became bradycardic and arrested. Patient received 2 epinephrine and magnesium with return of circulation. Cardiology has been paged. CT results still pending. [facility] called to expedite cts 10/11/19 13:04 Case was also discussed with Dr. Pandey from cardiology. EKG Findings - EKG Comments: EKG Findings:: A. fib with a rate of 85. QRS 108. QT 406. QTc 43. Normal axis. Low QRS voltage. Nonspecific T waves. Procedures - ABG Interpretation Ph: 7.22 PCO2: 58.8 PO2: 184 Interpretation: respiratory acidosis - Central Line Placement Right SC Consent Obtained: written consent, emergent situation Patient Placed on Monitor/Pulse Ox: Yes (Timeout done) MD Prep: mask, gown, gloves Central Line Prep: Chlorhexidine scrub Local Anesthesia Used: Lidocaine 1% Amount of Anesthesia Used (mls): 2 Ultrasound Used for Placement: No Central Line Lumen Inserted: triple Central Line Position: good blood return, all ports aspirated, flushed, capped, sutured in place with 3-0 nylon Dressing Applied: Tegaderm Post Procedure X-Ray: tip of catheter in good position Patient Tolerated Procedure: well, no complications Complications: none - Chest Tube Insertion Consent Obtained: emergent situation Side of Procedure: right Indication: Pneumothorax Placed on monitor/pulse oximetry: Yes Site Prep: Chloroprep Insertion Site: Midaxillary (Above second rib) Scalpel: #11 Tube Size (Kittitian): Other (thora-vent) Attached to Suction: Yes Type of Suction: Pleuravac Medical Decision Making - Lab Data Result diagrams: 10/11/19 10:44 10/11/19 10:44 Lab Results 10/11/19 10/11/19 10/11/19 Range/Units 10:44 10:44 10:44 WBC 8.2 (3.8-10.6) k/uL RBC 2.40 L (4.30-5.90) m/uL Hgb 8.3 L (13.0-17.5) gm/dL Hct 26.4 L (39.0-53.0) % MCV 110.3 H (80.0-100.0) fL MCH 34.7 (25.0-35.0) pg MCHC 31.5 (31.0-37.0) g/dL RDW 15.3 (11.5-15.5) % Plt Count 148 L (150-450) k/uL Neutrophils % 67 % Lymphocytes % 18 % Monocytes % 7 % Eosinophils % 2 % Basophils % 3 % Neutrophils # 5.5 (1.3-7.7) k/uL Lymphocytes # 1.5 (1.0-4.8) k/uL Monocytes # 0.6 (0-1.0) k/uL Eosinophils # 0.2 (0-0.7) k/uL Basophils # 0.2 (0-0.2) k/uL Manual Slide Review Performed Hypochromasia Marked Macrocytosis Marked A PT (9.0-12.0) sec INR (<1.2) APTT (22.0-30.0) sec Sample Site ABG pH (7.35-7.45) ABG pCO2 (35-45) mmHg ABG pO2 (83-108) mmHg ABG HCO3 (21-25) mmol/L ABG Total CO2 (19-24) mmol/L ABG O2 Saturation (94-97) % ABG Base Excess mmol/L Juvenal Test FiO2 % Sodium 137 (137-145) mmol/L Potassium 3.7 (3.5-5.1) mmol/L Chloride 99 (98-107) mmol/L Carbon Dioxide 25 (22-30) mmol/L Anion Gap 13 mmol/L BUN 14 (9-20) mg/dL Creatinine 0.99 (0.66-1.25) mg/dL Est GFR (CKD-EPI)AfAm 86 (>60 ml/min/1.73 sqM) Est GFR (CKD-EPI)NonAf 74 (>60 ml/min/1.73 sqM) Glucose 123 H (74-99) mg/dL Plasma Lactic Acid Sincere (0.7-2.0) mmol/L Calcium 8.2 L (8.4-10.2) mg/dL Magnesium 1.5 L (1.6-2.3) mg/dL Total Bilirubin 0.7 (0.2-1.3) mg/dL AST 38 (17-59) U/L ALT 17 L (21-72) U/L Alkaline Phosphatase 92 (38-126) U/L Troponin I (0.000-0.034) ng/mL Total Protein 6.1 L (6.3-8.2) g/dL Albumin 3.1 L (3.5-5.0) g/dL Blood Type O Positive Blood Type Recheck O Pos Bld Type Recheck Status No Antibody Screen NEGATIVE Spec Expiration Date 10/14/2019234310/11/19 10/11/19 10/11/19 Range/Units 10:44 10:44 10:44 WBC (3.8-10.6) k/uL RBC (4.30-5.90) m/uL Hgb (13.0-17.5) gm/dL Hct (39.0-53.0) % MCV (80.0-100.0) fL MCH (25.0-35.0) pg MCHC (31.0-37.0) g/dL RDW (11.5-15.5) % Plt Count (150-450) k/uL Neutrophils % % Lymphocytes % % Monocytes % % Eosinophils % % Basophils % % Neutrophils # (1.3-7.7) k/uL Lymphocytes # (1.0-4.8) k/uL Monocytes # (0-1.0) k/uL Eosinophils # (0-0.7) k/uL Basophils # (0-0.2) k/uL Manual Slide Review Hypochromasia Macrocytosis PT 12.0 (9.0-12.0) sec INR 1.2 H (<1.2) APTT 28.3 (22.0-30.0) sec Sample Site ABG pH (7.35-7.45) ABG pCO2 (35-45) mmHg ABG pO2 (83-108) mmHg ABG HCO3 (21-25) mmol/L ABG Total CO2 (19-24) mmol/L ABG O2 Saturation (94-97) % ABG Base Excess mmol/L Juvenal Test FiO2 % Sodium (137-145) mmol/L Potassium (3.5-5.1) mmol/L Chloride (98-107) mmol/L Carbon Dioxide (22-30) mmol/L Anion Gap mmol/L BUN (9-20) mg/dL Creatinine (0.66-1.25) mg/dL Est GFR (CKD-EPI)AfAm (>60 ml/min/1.73 sqM) Est GFR (CKD-EPI)NonAf (>60 ml/min/1.73 sqM) Glucose (74-99) mg/dL Plasma Lactic Acid Sincere 8.1 H* (0.7-2.0) mmol/L Calcium (8.4-10.2) mg/dL Magnesium (1.6-2.3) mg/dL Total Bilirubin (0.2-1.3) mg/dL AST (17-59) U/L ALT (21-72) U/L Alkaline Phosphatase (38-126) U/L Troponin I 0.092 H* (0.000-0.034) ng/mL Total Protein (6.3-8.2) g/dL Albumin (3.5-5.0) g/dL Blood Type Blood Type Recheck Bld Type Recheck Status Antibody Screen Spec Expiration Date 10/11/19 Range/Units 11:21 WBC (3.8-10.6) k/uL RBC (4.30-5.90) m/uL Hgb (13.0-17.5) gm/dL Hct (39.0-53.0) % MCV (80.0-100.0) fL MCH (25.0-35.0) pg MCHC (31.0-37.0) g/dL RDW (11.5-15.5) % Plt Count (150-450) k/uL Neutrophils % % Lymphocytes % % Monocytes % % Eosinophils % % Basophils % % Neutrophils # (1.3-7.7) k/uL Lymphocytes # (1.0-4.8) k/uL Monocytes # (0-1.0) k/uL Eosinophils # (0-0.7) k/uL Basophils # (0-0.2) k/uL Manual Slide Review Hypochromasia Macrocytosis PT (9.0-12.0) sec INR (<1.2) APTT (22.0-30.0) sec Sample Site L Rad ABG pH 7.23 L (7.35-7.45) ABG pCO2 59 H (35-45) mmHg ABG pO2 184 H (83-108) mmHg ABG HCO3 25 (21-25) mmol/L ABG Total CO2 26 H (19-24) mmol/L ABG O2 Saturation 99.7 H (94-97) % ABG Base Excess -3.1 mmol/L Ju[place]al Test Yes FiO2 100 % Sodium (137-145) mmol/L Potassium (3.5-5.1) mmol/L Chloride (98-107) mmol/L Carbon Dioxide (22-30) mmol/L Anion Gap mmol/L BUN (9-20) mg/dL Creatinine (0.66-1.25) mg/dL Est GFR (CKD-EPI)AfAm (>60 ml/min/1.73 sqM) Est GFR (CKD-EPI)NonAf (>60 ml/min/1.73 sqM) Glucose (74-99) mg/dL Plasma Lactic Acid Sincere (0.7-2.0) mmol/L Calcium (8.4-10.2) mg/dL Magnesium (1.6-2.3) mg/dL Total Bilirubin (0.2-1.3) mg/dL AST (17-59) U/L ALT (21-72) U/L Alkaline Phosphatase (38-126) U/L Troponin I (0.000-0.034) ng/mL Total Protein (6.3-8.2) g/dL Albumin (3.5-5.0) g/dL Blood Type Blood Type Recheck Bld Type Recheck Status Antibody Screen Spec Expiration Date - Radiology Data Radiology results: report reviewed (Computed tomography scan of the head and neck reveals no acute process, foreign body left medial orbit. Rib fractures. Computed tomography scan of the chest abdomen pelvis shows improvement right hydropneumothorax, CHF findings, right-sided rib fractures.), image reviewed (Chest x-ray shows asymmetric multifocal opacities, likely pulmonary edema.) Critical Care Time Critical Care Time: Yes Total Critical Care Time: 85 Disposition Clinical Impression: Cardiac arrest Disposition: ADMITTED IP TO THIS [facility] Condition: Critical Is patient prescribed a controlled substance at d/c from ED?: No Decision Time: 13:24
--- NOTE | 2019-10-11 11:12 | XR ---
EXAMINATION TYPE: XR chest 1V portable DATE OF EXAM: 10/11/2019 COMPARISON: 10/05/2019 HISTORY: Cardiac arrest. TECHNIQUE: Single frontal view of the chest is obtained. FINDINGS: Asymmetric consolidations within the right lung. Cardiomediastinal silhouette enlargement and engorgement of the superior vena cava/right azygos confluence that is exaggerated by patient rota tion. Enteric tube appear satisfactorily placed extending off of the end of the distal [id number] of the image. Endotracheal tube is also appropriately placed terminating at the aortic arch. Diffuse osseous demineralization. Old fracture deformities of the right lower lateral ribs. IMPRESSION: Asymmetric multifocal right-sided opacities, likely exaggerated by rotation and possibly related to pulmonary edema in this patient with known cardiac arrest. Enlarged cardiomediastinal naye houette is noted on the prior. Appropriately placed endotracheal and enteric tube.
[2019-10-11 11:15] LABS: Albumin 3.1 g/dL (3.5-5.0); Calcium 8.2 mg/dL (8.4-10.2); Magnesium 1.5 mg/dL (1.6-2.3); Potassium 3.7 mmol/L (3.5-5.1); Total Bilirubin 0.7 mg/dL (0.2-1.3); Total Protein 6.1 g/dL (6.3-8.2)
[2019-10-11 11:29] LABS: INR 1.2 (<1.2); Partial Thromboplastin Time 28.3 sec (22.0-30.0)
[2019-10-11] MEDS ORDERED: CALCIUM GLUCONATE 1 GM in SODIUM CHLORIDE 0.9% 100 ML IVPB ONE (11:30)
[2019-10-11] MEDS ORDERED: MAGNESIUM SULFATE-D5W PMX 1 GM in DEXTROSE/WATER 1 100ML.BAG IVPB ONE (11:30)
[2019-10-11 11:33] LABS: ABG Base Excess -3.1 mmol/L; ABG HCO3 25 mmol/L (21-25); ABG Oxygen Saturation 99.7 % (94-97); ABG PCO2 59 mmHg (35-45); ABG PH 7.23 (7.35-7.45); ABG PO2 184 mmHg (83-108); ABG TCO2 26 mmol/L (19-24); Allen Test Performed? Yes
[2019-10-11 11:34] LABS: Basophils # (A) 0.2 k/uL (0-0.2); Basophils % (A) 3 %; Eosinophils # (A) 0.2 k/uL (0-0.7); Eosinophils % (A) 2 %; HCT 26.4 % (39.0-53.0); HGB 8.3 gm/dL (13.0-17.5); Hypochromasia Marked; Lymphocytes # (A) 1.5 k/uL (1.0-4.8); Lymphocytes % (A) 18 %; MCH 34.7 pg (25.0-35.0); MCHC 31.5 g/dL (31.0-37.0); MCV 110.3 fL (80.0-100.0); Macrocytosis Marked; Mean Platelet Volume 7.1; Monocytes # (A) 0.6 k/uL (0-1.0); Monocytes % (A) 7 %; Neutrophils # (A) 5.5 k/uL (1.3-7.7); Neutrophils % (A) 67 %; Platelet Count 148 k/uL (150-450); RDW 15.3 % (11.5-15.5); WBC 8.2 k/uL (3.8-10.6)
[2019-10-11] MEDS ORDERED: LORazepam 2 MG/ML INJ IV PRN ×2 (11:47)
[2019-10-11] MEDS ORDERED: IPRATROPIUM-ALBUTEROL 3 ML NEB INHALATION PRN (11:47)
[2019-10-11] MEDS ORDERED: PROPOFOL 1,000 MG in EMPTY BAG 1 BAG IV SCH (12:00)
--- NOTE | 2019-10-11 12:08 | XR ---
EXAMINATION TYPE: XR chest 1V portable DATE OF EXAM: 10/11/2019 COMPARISON: 10/11/2019 chest x-ray HISTORY: Shortness of breath TECHNIQUE: Single frontal view of the chest is obtained. FINDINGS: There is a new right-sided pneumothorax with maximal pleural separation along the lung ape x of approximately 4.4 cm and along the right lung base at 3.3 cm. There is right to left mediastinal shift that is new and multifocal right-sided opacities, likely atelectasis and pulmonary vascular co ngestion. Endotracheal tube has been retracted in the interim and could be advanced approximately 2 c m for more optimal placement. Enteric tube is appropriately placed. Cardia mediastinal silhouette is again enlarged. Scattered atelectasis in the left lung is visualized. Incomplete visualization of the left hemithorax. IMPRESSION: Right-sided pneumothorax with mediastinal shift (known to the ordering emergency physici an upon attempted notification). Volume is estimated to be approximately 30-40%. Other findings as as detailed above.
[2019-10-11] MEDS ORDERED: NALOXONE 0.4 MG/ML 1 ML VIAL IV PRN (13:07)
[2019-10-11] MEDS ORDERED: MORPHINE SULFATE 4 MG/ML SYRINGE IV PRN (13:07)
[2019-10-11 13:15] LABS: Appearance,Urine Clear (Clear); Bilirubin,Urine Negative (Negative); Blood,Urine Moderate (Negative); Color,Urine Light Yellow; Glucose,Urine (UA) Negative (Negative); Ketones,Urine Negative (Negative); Leukocyte Esterase,Urine Negative (Negative); Nitrite,Urine Negative (Negative); Protein,Urine 1+ (Negative); Specific Gravity,Urine 1.007 (1.001-1.035); Urobilinogen,Urine <2.0 mg/dL (<2.0)
--- NOTE | 2019-10-11 13:17 | CT ---
EXAMINATION TYPE: CT brain harlan coleman DATE OF EXAM: 10/11/2019 COMPARISON: Chest x-ray same date HISTORY: Patient found unresponsive in his car. Altered mental status CT DLP: 2129.2 mGycm Automated exposure control for dose reduction was used. TECHNIQUE: CT scan of the head and cervical spine are performed without contrast. FINDINGS: There is no acute intracranial hemorrhage, mass effect, or midline shift identified. The ventricles and sulci are within normal limits in size. The globes are intact and the visualized sin uses are remarkable for opacification of right maxillary sinus, inflammatory change present in the sp henoid, ethmoid air cells. There is some increased attenuation, thickening of the soft tissues anteri or to the clivus. Periventricular white matter shows low attenuation, there is cortical atrophy. Endo tracheal and NG tube tube noted incidentally. Apical pneumothorax correlates with plain film finding. Metallic BB present in the medial aspect of the left orbit just superior to the medial rectus muscle may be chronic. Cervical spine is visualized in its entirety from C1 through upper thoracic levels and demonstrates s atisfactory alignment without evidence of acute fracture or dislocation. There is some motion presen t. The posterior elements at C3-4 show ankylosis on the left. There is multilevel spondylosis present . Minimal anterolisthesis grade 1 C5-6, retrolisthesis grade 1 C6-7. There is loss of disc height at intervertebral levels. Prevertebral soft tissue appears within normal limits. There is multilevel fac et arthropathy change, foraminal encroachment The C1-C2 articulation is unremarkable. Right first a nd second, third rib fractures are noted. There is a subclavian central venous catheter present. Righ t pleural effusion is present with edema or atelectasis. IMPRESSION: There is motion on the exam. Metallic foreign body medial left orbit. 1. There is no acute fracture or dislocation evident in the cervical spine. 2. No acute intracranial hemorrhage, mass effect, or midline shift is seen. 3. There are fractures at the first and second, third ribs.
--- NOTE | 2019-10-11 13:19 | CT ---
EXAMINATION TYPE: CT ChestAbdPelvis w con DATE OF EXAM: 10/11/2019 COMPARISON: Chest x-ray of the same date HISTORY: Patient found unresponsive in his car. Altered mental status. Right-sided pneumothorax. CT DLP: 1241 mGycm. Automated Exposure Control for Dose Reduction was Utilized. CONTRAST: CT scan of the thorax, abdomen and pelvis is performed with IV Contrast, patient injected with 100 mL of Isovue 300. FINDINGS: LUNGS: There is improved caliber of the right-sided hydropneumothorax, now estimated at less than 10% status post interval insertion of a right-sided thoracostomy tube. There are small to moderate bilat eral pleural effusions, right greater than left with associated compressive atelectasis. No left-side d pneumothorax is seen. MEDIASTINUM: Global cardiomegaly with reflux of contrast into the hepatic veins suggesting a degree o f right heart failure. Mild coronary calcifications. There are no greater than 1 cm hilar or mediasti nal lymph nodes. No pericardial effusion is seen. OTHER: Enteric and endotracheal tubes are seen. Interval retraction of the enteric tube now terminati ng in the hiatal hernia. Advancement is recommended. Hiatal hernia is moderate. LIVER/GB: Unremarkable unenhanced morphology. Gallbladder is contracted. PANCREAS: Degree hepatic parenchymal atrophy. SPLEEN: No significant abnormality is seen. ADRENALS: No significant abnormality is seen. KIDNEYS: Limited evaluation. No gross evidence of hydronephrosis.. BOWEL: Diffuse anasarca and mild volume abdominal ascites. LYMPH NODES: No greater than 1cm abdominal or pelvic lymph nodes are appreciated. OSSEOUS STRUCTURES: Mild reverse S-shaped scoliosis. Moderate multilevel degenerative disc disease mo re severe in the lumbosacral spine. Right hip arthroplasty creates spray artifact. Generalized mild d iffuse osseous demineralization. There are acute fractures of the anterior margin of rib 1 and lateral margins of ribs 2 through 6. OTHER: Air within the urinary bladder is likely from recent instrumentation with Armendariz catheter place ment and decompression. IMPRESSION: 1. Improved right hydropneumothorax status post thoracostomy tube placement. Overall there are small to moderate pleural effusions with associated airspace disease, compressive atelectasis. 2. Mild ascites and diffuse anasarca. Overall fluid overload with suggestion of right heart failure. Global cardiomegaly is seen. 3. Hiatal hernia with the distal aspect of the enteric tube situated in the hernia defect. Advancemen t is recommended. 4. No gross evidence of acute process within the abdomen or pelvis. 5. Multiple right-sided rib fractures.
[2019-10-11] MEDS: IPRATROPIUM-ALBUTEROL 3 ML NEB INHALATION SCH ×4 (13:20→23:24)
--- NOTE | 2019-10-11 13:22 | XR ---
EXAMINATION TYPE: XR chest 1V portable DATE OF EXAM: 10/11/2019 COMPARISON: Prior chest x-ray same dated earlier time HISTORY: Dyspnea TECHNIQUE: Single frontal view of the chest is obtained. FINDINGS: Endotracheal tube, NG tube, right subclavian central venous catheter are present, distal t ip of the NG tube not included on exam. There has been interval placement of a thoracic vent and redu ction of patient's right-sided pneumothorax. Heart remains enlarged. Interstitium is increased, some mixed airspace disease is suspected especially on the right. IMPRESSION: Interval placement of thoracic vent with improvement in patient's right-sided pneumothor ax.
[2019-10-11 13:28] LABS: WBC,Urine 2 /hpf (0-5)
[2019-10-11 13:29] LABS: RBC,Urine 1 /hpf (0-5); Squamous Epithelial Cell,Urine 1 /hpf (0-4)
[2019-10-11 13:31] LABS: ALT 19 U/L (21-72); AST 42 U/L (17-59); African American GFR (CKD) >90 (>60 ml/min/1.73 sqM); Albumin 2.4 g/dL (3.5-5.0); Alkaline Phosphatase 84 U/L (38-126); Anion Gap 8 mmol/L; Blood Urea Nitrogen 16 mg/dL (9-20); Calcium 9.7 mg/dL (8.4-10.2); Carbon Dioxide 26 mmol/L (22-30); Chloride 102 mmol/L (98-107); Glucose 128 mg/dL (74-99); Non-African American GFR(CKD) 85 (>60 ml/min/1.73 sqM); Potassium 3.5 mmol/L (3.5-5.1); Sodium 136 mmol/L (137-145); Total Bilirubin 0.7 mg/dL (0.2-1.3); Total Protein 5.2 g/dL (6.3-8.2)
[2019-10-11 13:34] LABS: Basophils % (A) 0 %; Eosinophils # (A) 0.1 k/uL (0-0.7); Eosinophils % (A) 1 %; HCT 24.5 % (39.0-53.0); HGB 7.8 gm/dL (13.0-17.5); Hypochromasia Moderate; Lymphocytes # (A) 0.7 k/uL (1.0-4.8); Lymphocytes % (A) 11 %; MCH 34.5 pg (25.0-35.0); MCHC 31.6 g/dL (31.0-37.0); MCV 109.3 fL (80.0-100.0); Macrocytosis Marked; Mean Platelet Volume 6.6; Monocytes # (A) 0.3 k/uL (0-1.0); Monocytes % (A) 5 %; Neutrophils % (A) 82 %; Platelet Count 131 k/uL (150-450); RBC 2.25 m/uL (4.30-5.90); RDW 15.3 % (11.5-15.5); WBC 6.1 k/uL (3.8-10.6)
[2019-10-11 13:38] LABS: INR 1.2 (<1.2); Partial Thromboplastin Time 26.5 sec (22.0-30.0); Prothrombin Time 12.8 sec (9.0-12.0)
[2019-10-11 13:58] LABS: Poikilocytosis (M) Present
[2019-10-11] MEDS: CISATRACURIUM 2 MG/ML 5 ML VIAL IV ONE ×2 (14:16→14:32)
[2019-10-11 14:19] LABS: Glucose,Whole Blood 94 mg/dL (75-99)
--- NOTE | 2019-10-11 15:33 | XR ---
EXAMINATION TYPE: XR chest 1V portable DATE OF EXAM: 10/11/2019 COMPARISON: Prior chest x-ray 10/11/2019 HISTORY: Right-sided chest tube placement TECHNIQUE: frontal view of the chest is obtained on 2 images. FINDINGS: Right-sided chest tube has been placed in the interval, thoracic vent has been removed. No evident pneumothorax. Subcutaneous emphysema is present. Endotracheal tube, NG tube, right subclavia n central venous catheter, left subclavian central venous catheter are present. Distal tip the cathet er is overlying the superior vena cava. Heart remains enlarged. Patchy airspace disease persists in t he right lung. IMPRESSION: No evident application status post chest tube placement, left subclavian central venous catheter placement.
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
[2019-10-11] MEDS ORDERED: Magnesium Replacement Protocol 1 EACH MISC MISCELLANE PRN (16:38)
[2019-10-11] MEDS ORDERED: Potassium Replacement Protocol 1 EACH MISC MISCELLANE PRN (16:38)
[2019-10-11 17:13] VITALS: BMI 32.1
[2019-10-11] MEDS ORDERED: SODIUM CHLORIDE 0.9% 1,000 ML IV ONE (17:28)
[2019-10-11] MEDS ORDERED: SODIUM CHLORIDE 0.9% 500 ML 1,000 ML IV ONE (17:35)
[2019-10-11 17:45] LABS: ABG Base Excess 3.9 mmol/L; ABG HCO3 29 mmol/L (21-25); ABG Oxygen Saturation 98.1 % (94-97); ABG PCO2 49 mmHg (35-45); ABG PH 7.38 (7.35-7.45); ABG PO2 98 mmHg (83-108); ABG TCO2 30 mmol/L (19-24); Allen Test Performed? Yes
[2019-10-11] MEDS: NOREPINEPHRINE 32 MG in SODIUM CHLORIDE 0.9% 218 ML IV SCH (17:45)
--- NOTE | 2019-10-11 18:55 | PCN ---
PROCEDURE NOTE TRIPLE LUMEN CATHETER PLACEMENT: PREOPERATIVE DIAGNOSIS: Administration of fluids and pressors. POSTOPERATIVE DIAGNOSIS: Administration of fluids and pressors. DESCRIPTION OF PROCEDURE: A time-out was completed verifying correct patient, procedure, site, positioning, and implant(s) or special equipment if applicable. The patient was placed in a dependent position appropriate for triple-lumen catheter placement based on the vein to be cannulated. The patient's left shoulder was prepped and draped in sterile fashion. Lidocaine 1% was used to anesthetize the surrounding skin area. A triple-lumen 9F Cordis catheter was introduced into the left subclavian vein using Seldinger technique. The catheter was threaded smoothly over the guide wire and appropriate blood return was obtained. Each lumen of the catheter was evacuated of air and flushed with sterile saline. The catheter was then sutured in place to the skin and a sterile dressing applied. Perfusion to the extremity distal to the point of catheter insertion was checked and found to be adequate. There were no immediate complications. There was good blood return from all 3 ports. The patient tolerated the procedure well. The catheter was sutured in place. Sterile dressing was applied by the nurse. A chest x-ray will be ordered to check placement. Again, there was no immediate complication. MMODL / IJN: [id number] /
--- NOTE | 2019-10-11 18:55 | PCN ---
PROCEDURE NOTE PROCEDURE: Right chest tube placement. We employed a number 28 chest tube. We put the tube in at the fifth intercostal space at the anterior axillary line. There was no immediate complication. The tube was placed in appropriate position. There was some blood return from the tube. This was to be expected. The tube was sutured in place. Sterile dressing was applied, including Vaseline gauze. The tube was connected to the Pleur-evac. There were no major complications. The tube was secured with elastic tape. A chest x-ray will be ordered afterwards. MMODL / IJN: [id number] /
--- NOTE | 2019-10-11 19:46 | PCN ---
PROCEDURE NOTE PROCEDURE: Left radial arterial line placement. PREOPERATIVE DIAGNOSIS: Cardiac arrest. POSTOPERATIVE DIAGNOSIS: Cardiac arrest. A time-out was completed verifying correct patient, procedure, site, positioning, and implant(s) or special equipment if applicable. Juvenal's test was performed to ensure adequate perfusion. The patient's left wrist was prepped and draped in sterile fashion. 1% Lidocaine was used to anesthetize the area. An 18G Arrow arterial line was introduced into the radial artery. The catheter was threaded over the guide wire and the needle was removed with appropriate pulsatile blood return. Blood loss was minimal. The catheter was then sutured in place to the skin and a sterile dressing applied. Perfusion to the extremity distal to the point of catheter insertion was checked and found to be adequate. The patient tolerated the procedure very well and there were no immediate complications. Good waveform was noted. The line was flushed, sutured in place. Sterile dressing was applied. Tolerated procedure very well. MMODL / IJN: [id number] /
[2019-10-11 19:49] LABS: Creatine Kinase MB 18.5 ng/mL (0.0-2.4)
[2019-10-11] MEDS: POTASSIUM CHLORIDE 20 MEQ in WATER FOR INJECTION 1 100ML.BAG IVPB SCH ×2 (20:37→22:40)
[2019-10-11] MEDS: MAGNESIUM SULFATE-D5W PMX 1 GM in DEXTROSE/WATER 1 100ML.BAG IVPB SCH ×2 (20:41→21:45)
[2019-10-11] MEDS: SODIUM CHLORIDE 0.9% 1,000 ML IV SCH (20:42)
[2019-10-11] MEDS: PANTOPRAZOLE 40 MG/10 ML VIAL IV SCH (21:32)
[2019-10-11] MEDS: CHLORHEXIDINE GLUCONATE 15 ML CUP MUCOUS MEM SCH (21:32)
[2019-10-11] MEDS: PROPOFOL 1,000 MG in EMPTY BAG 1 BAG IV SCH (21:49)
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
[2019-10-12 00:10] LABS: Glucose,Whole Blood 82 mg/dL (75-99)
[2019-10-12] MEDS: SODIUM CHLORIDE 0.9% 1,000 ML IV SCH ×3 (02:23→16:21)
[2019-10-12] MEDS: IPRATROPIUM-ALBUTEROL 3 ML NEB INHALATION SCH ×5 (03:28→19:05)
[2019-10-12] MEDS: PROPOFOL 1,000 MG in EMPTY BAG 1 BAG IV SCH ×2 (04:23→08:44)
[2019-10-12 04:58] LABS: Calcium 7.9 mg/dL (8.4-10.2); Magnesium 1.6 mg/dL (1.6-2.3); Potassium 3.8 mmol/L (3.5-5.1)
[2019-10-12 04:59] LABS: ABG Base Excess 0.8 mmol/L; ABG HCO3 25 mmol/L (21-25); ABG Oxygen Saturation 97.2 % (94-97); ABG PCO2 38 mmHg (35-45); ABG PH 7.43 (7.35-7.45); ABG PO2 85 mmHg (83-108); ABG TCO2 26 mmol/L (19-24)
[2019-10-12 05:02] LABS: Allen Test Performed? no
[2019-10-12] MEDS ORDERED: POTASSIUM CHLORIDE 20 MEQ in WATER FOR INJECTION 1 100ML.BAG IVPB STA (05:22)
[2019-10-12] MEDS: MAGNESIUM SULFATE-D5W PMX 1 GM in DEXTROSE/WATER 1 100ML.BAG IVPB SCH ×3 (05:30→06:47)
[2019-10-12 05:55] LABS: Basophils # (A) 0.1 k/uL (0-0.2); Basophils % (A) 2 %; Eosinophils # (A) 0.1 k/uL (0-0.7); Eosinophils % (A) 1 %; HCT 26.7 % (39.0-53.0); HGB 8.4 gm/dL (13.0-17.5); Hypochromasia Slight; Lymphocytes # (A) 0.4 k/uL (1.0-4.8); Lymphocytes % (A) 4 %; MCH 33.6 pg (25.0-35.0); MCHC 31.3 g/dL (31.0-37.0); MCV 107.4 fL (80.0-100.0); Mean Platelet Volume 7.8; Monocytes # (A) 0.4 k/uL (0-1.0); Monocytes % (A) 5 %; Neutrophils % (A) 88 %; Platelet Count 204 k/uL (150-450); RBC 2.48 m/uL (4.30-5.90); RDW 15.5 % (11.5-15.5); WBC 9.1 k/uL (3.8-10.6)
[2019-10-12 05:56] LABS: Macrocytosis Marked
[2019-10-12] MEDS: NOREPINEPHRINE 32 MG in SODIUM CHLORIDE 0.9% 218 ML IV SCH (05:56)
[2019-10-12 06:28] LABS: Glucose,Whole Blood 82 mg/dL (75-99)
--- NOTE | 2019-10-12 07:54 | XR ---
EXAMINATION TYPE: XR chest 1V portable DATE OF EXAM: 10/12/2019 COMPARISON: Prior chest x-ray dated 10/11/2019 HISTORY: Intubated TECHNIQUE: Single frontal view of the chest is obtained. FINDINGS: Endotracheal tube and NG tube are overlying appropriate positions, NG tube is not included on the exam and its distal extent. Left subclavian central venous catheter shows the distal tip over the superior vena cava. Right-sided catheter has been removed. Second chest tube remains in place. T here is no evident pneumothorax. Bilateral airspace disease is present. Difficult to exclude effusion . Central vascularity is prominent. Heart remains enlarged. Patient is rotated. Patient's right-sided rib fractures are not well seen on plain film. IMPRESSION: Interval removal of right subclavian central venous catheter. Possible atelectasis versu s pneumonia, edema and effusions. Cardiomegaly.
[2019-10-12] MEDS: PANTOPRAZOLE 40 MG/10 ML VIAL IV SCH (08:45)
[2019-10-12] MEDS: CHLORHEXIDINE GLUCONATE 15 ML CUP MUCOUS MEM SCH ×2 (08:45→20:45)
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
--- NOTE | 2019-10-12 10:08 | PN ---
PROGRESS NOTE PULMONARY CRITICAL CARE PROGRESS NOTE: DATE OF SERVICE: 10/12/2019 This is a 74-year-old gentleman who was seen yesterday in the emergency room. He was found in cardiac arrest. Apparently, him and his girlfriend were leaving the house at the same time to go to different locations or meet at a similar location. She left before him and when he did not arrive, she went back to the house to find him in cardiac arrest. Apparently, he was in the car and it was coming out of the driveway but never fully made it out of the driveway. He must have had a cardiac arrest or some sort of event while he was pulling the car back out of the driveway. Anyway, bystander CPR was started. EMS was called. He had a prolonged resuscitation time of more than 40 minutes. He was intubated in the field. A Dony device was placed on his chest for chest compressions. He went from asystole to PEA back to asystole. There was eventual return of spontaneous circulation. In the emergency department, the patient also had an 11 minute episode of full cardiac arrest. In total, about 51 minutes or so of cardiac arrest with there was inadequate circulation and perfusion. Anyway, the patient was eventually resuscitated with return of spontaneous circulation. Dr. Macario attempted a right subclavian central line. He caused a right pneumothorax. A Thora Vent was placed by he. The patient was seen in the emergency room. He was transferred up to the ICU. Up in the ICU, we removed the right subclavian catheter. We put a left subclavian catheter in place. We also removed the Thora Vent after we placed a #28- Wolof chest tube. Finally, a left radial arterial line was placed. Currently, he is on the volume assist-control mode, rate of 18, tidal volume 550, FiO2 of 70%, PEEP of 5. Blood gases are reasonable with a pO2 of 85, pCO2 of 38, pH of 7.43. He is on Levophed of 43 mcg/minute, Diprivan at 25 mcg/kg per minute, a saline IV at 136 mL/hour. No tube feeds as yet. Today, we are going to do a daily interruption of sedation and assess the patient. He also will need an EEG. Current vital signs reviewed. Temperature 100.4, heart rate 78, respiratory rate 25, blood pressure 133/67 mean 89, saturations are 97%. Appears in no acute distress. HEENT: Examination is grossly unremarkable. His pupils are in mid plane and very sluggishly and nonreactive. He does trigger the ventilator. He does have a weak gag reflex. Endotracheal tube and NG tube are noted. NECK: Supple. Full range of motion. No adenopathy. CARDIOVASCULAR: Examination reveals regular rhythm and rate. Heart rate mid to high 70s. S1, S2 normal. Heart sounds are distant. LUNGS: Reveal coarse bilateral rhonchi. No wheezes. Crackles are noted bilaterally. ABDOMEN: Soft. Bowel sounds are not noted. EXTREMITIES: Intact. Mild edema. SKIN: Without rash. NEUROLOGIC: Examination could not be adequately assessed. LAB DATA: Reviewed. White count 9.1, hemoglobin 8.4, hematocrit 26.7, platelet count 204,000, gases have been noted thus far. Sodium 136, potassium 3.8, chloride 103, CO2 is 25, anion gap is 8. BUN and creatinine were 20 and 0.99. Chest x-ray shows a left subclavian triple-lumen catheter. In addition, there is a right-sided pleural chest tube. NG tube is seen to pass into the stomach. Endotracheal tube is properly positioned above the tracheal chandler. Microbiology is currently pending. CURRENT MEDICATIONS: Reviewed. He is currently on chlorhexidine, updrafts with albuterol and Atrovent q.4, magnesium replacement, morphine sulfate p.r.n., Narcan p.r.n., norepinephrine, Protonix, potassium replacement. ASSESSMENT: 1. [id number] cardiopulmonary arrest of unclear etiology, with prolonged cardiopulmonary resuscitation and eventual return of spontaneous circulation. Resuscitation lasted at least 50+ minutes. 2. Recent admissions to the hospital for gastrointestinal bleed, status post EGD and colonoscopy, which revealed antral gastritis, gastric polyps, internal and external hemorrhoids, and diverticular disease. 3. Hypoxemic respiratory failure, requiring mechanical ventilation. 4. Status post right pneumothorax subsequent to placement of a right subclavian triple- lumen catheter, status post Thora Vent. 5. Replacement of Thora Vent with a right pleural chest tube. 6. History of atrial fibrillation. 7. History of coronary artery disease. 8. History of diabetes mellitus. 9. History of gastroesophageal reflux disease. 10.History of hypertension. 11.History of gout. PLAN: The patient will have a daily interruption of sedation. Will order an EEG. Additional recommendations and suggestions are forthcoming. His overall prognosis remains poor. I had a long talk with the family yesterday. They appreciated what I had to say. They agree with a DNR code status. No additional recommendations are made. They may be willing to move toward comfort measures depending on the results of the DIS and the EEG. Critical care time 35 minutes. JESICA / ZULEIMA: [id number] /
--- NOTE | 2019-10-12 10:09 | CDI ---
Documentation Clarification Form Date: 10/12/2019 9:59:25 AM From: Nohemy Christian RN, CCDS Admit Date: 10/11/2019 1:07:00 PM Patient Name: Sumeet Giraldo Visit Number: [id number] ATTENTION: The Clinical Documentation Specialists (CDI) and [facility] Coding Staff appreciate your assistance in clarifying documentation. Please respond to the clarification below the line at the bottom and electronically sign. The CDI & [facility] Coding staff will review the response and follow-up if needed. Please note: Queries are made part of the Legal Health Record. If you have any questions, please contact the author of this message via ITS. Dr. Salgado Patient history/risk factors: Cardiac Arrest d/t asystole and PEA, Acute hypoxic respiratory failure, Right hydropneumothorax, PAF, DM2, severe ETOH Abuse, anemia 2nd to chronic etoh use Clinical Indicators: 10/12 Cardiology Consult: " cardiopulmonary arrest of unknown etiology #2 hypotension requiring vasopressors #3 atrial fibrillation of unknown etiology." 10/11 2115 Vitals: HR 51, RR 23, B/P 81/42, spo2 89%, temp 99 Treatment: IV levophed gtt titrate for B/P 7L IVF Bolus In your professional opinion, can you please provide clinical significance of the hypotension and treatment if known? Septic Shock Suspected or known causative organism Any associated organ failure Cardiogenic Shock Cause Hypovolemic Shock Cause Other, please specify Unable to determine (Last Revision: August 2017) My impression was already dictated for further queries regarding cardiology note refer to that note. RUBI
--- NOTE | 2019-10-12 12:01 | ECHOF ---
Referral Reason:LV function MEASUREMENTS -------- HEIGHT: 185.4 cm WEIGHT: 97.5 kg BP: 129/71 RVIDd: 5.6 cm (< 3.3) IVSd: 1.4 cm (0.6 - 1.1) LVIDd: 4.4 cm (3.9 - 5.3) LVPWd: 1.9 cm (0.6 - 1.1) IVSs: 1.6 cm LVIDs: 3.9 cm LVPWs: 1.9 cm FINDINGS -------- Sinus rhythm with extra systolic beats. This was a technically difficult study with suboptimal views. Limited Study Pt. on a vent. S/P C ardiac Arrest. Overall left ventricular systolic function is severely reduced with, an EF between 20 - 30 % The right ventricle is severely enlarged. The left atrium was not well visualized. The right atrium is moderately enlarged. 1.5mg of Definity was utilized for enhancement of images The aortic valve was not well visualized. The mitral valve was not well visualized. The tricuspid valve was not well visualized. The pulmonic valve was not well visualized. CONCLUSIONS -------- 1. Sinus rhythm with extra systolic beats. 2. This was a technically difficult study with suboptimal views. 3. Limited Study 4. Pt. on a vent. 5. S/P Cardiac Arrest. 6. Overall left ventricular systolic function is severely reduced with, an EF between 20 - 30 % 7. The right ventricle is severely enlarged. 8. The left atrium was not well visualized. 9. The right atrium is moderately enlarged. 10. 1.5mg of Definity was utilized for enhancement of images 11. The aortic valve was not well visualized. 12. The mitral valve was not well visualized. 13. The tricuspid valve was not well visualized. 14. The pulmonic valve was not well visualized. BAGGAGEMAN: Em Verma [facility]
[2019-10-12] MEDS ORDERED: ACETAMINOPHEN IV (For NPO) 1,000 MG in EMPTY BAG 1 BAG IVPB PRN (12:09)
--- NOTE | 2019-10-12 13:30 | P.GSCN ---
History of Present Illness Consult date: 10/12/19 Reason for Consult: recent GI bleed Requesting physician: Brett Macario History of present illness: CHIEF COMPLAINT: Recent GI bleed HISTORY OF PRESENT ILLNESS: 74-year-old male who is currently admitted to the intensive care unit after a cardiopulmonary arrest. Patient known to surgical services to recent hospitalization for GI bleed. Patient underwent EGD and colonoscopy on 10/08/2019 revealing gastritis, multiple gastric polyps, diverticulosis, and significant internal and external hemorrhoids. The patients hemoglobin has remained stable. PAST MEDICAL HISTORY: See list. PAST SURGICAL HISTORY: See list. SOCIAL HISTORY: No illicit drug use. REVIEW OF SYSTEMS: Unable to obtain secondary to intubation PHYSICAL EXAM: VITAL SIGNS: Reviewed. GENERAL: Well-developed in no acute distress on mechanical ventilation. HEENT: ET tube noted. NG tube to LIS. No sclera icterus. Extraocular movements grossly intact. Moist buccal mucosa. Head is atraumatic, normocephalic. ABDOMEN: Soft. Nondistended. Nontender. NEUROLOGIC: Sedated on mechanical ventilation LABORATORY DATA: Most recent laboratory data reveals white count 9.1. Hemoglobin 8.4. Platelet count 204. Sodium 136. Potassium 3.8. BUN 20. Creatinine 0.99. ASSESSMENT: 1. Cardiopulmonary arrest 2. Recent GI bleed, s/p EGD and colonoscopy on 10/08/2019 revealing gastritis, multiple gastric polyps, diverticulosis, and significant internal and external hemorrhoids PLAN: Patients hemoglobin has remained stable with no signs of active GI bleeding No surgical intervention recommended Unfortunately, patient's prognosis remains poor. Continue management per Dr. Pace Nurse practitioner note has been reviewed by physician. Signing provider agrees with the documented findings, assessment, and plan of care. Past Medical History Past Medical History: Atrial Fibrillation, Coronary Artery Disease (CAD), Diabetes Mellitus, GERD/Reflux, Hypertension Additional Past Medical History / Comment(s): low hgb, gout History of Any Multi-Drug Resistant Organisms: None Reported Past Surgical History: Orthopedic Surgery Additional Past Surgical History / Comment(s): hip, cataracts Past Anesthesia/Blood Transfusion Reactions: No Reported Reaction Past Psychological History: No Psychological Hx Reported Smoking Status: Never smoker Past Alcohol Use History: Daily Past Drug Use History: None Reported - Past Family History Father Family Medical History: Diabetes Mellitus Mother Family Medical History: No Reported History Additional Family Medical History / Comment(s): patient's mother past away when patient was 1 year old Medications and Allergies Home Medications Medication Instructions Recorded Confirmed Type Allopurinol [Zyloprim] 100 mg PO QAM 10/05/19 10/11/19 History Carvedilol 25 mg PO QAM 10/05/19 10/11/19 History Enalapril [Vasotec] 2.5 mg PO DAILY 10/05/19 10/11/19 History Ferrous Sulfate [Iron (65 MG 325 mg PO QAM 10/05/19 10/11/19 History Elemental)] Furosemide [Lasix] 40 mg PO BID 10/05/19 10/11/19 History Bascom-3 Fatty Acids [Bascom-3] 1,000 mg PO QAM 10/05/19 10/11/19 History Omeprazole 20 mg PO QAM 10/05/19 10/11/19 History Multivitamin [Multivitamins Adult 1 each PO DAILY #30 tablet 10/10/19 10/11/19 Rx Gummies] Thiamine [Vitamin B-1] 100 mg PO BID-W/MEALS #30 tab 10/10/19 10/11/19 Rx Allergies Allergy/AdvReac Type Severity Reaction Status Date / Time No Known Allergies Allergy Verified 10/11/19 11:10 Surgical - Exam Vital Signs Temp Pulse Resp BP Pulse Ox 97.4 F L 77 16 116/106 98 10/11/19 10:27 10/11/19 10:27 10/11/19 10:27 10/11/19 10:27 10/11/19 10:27 Results - Labs 10/12/19 04:15 10/12/19 04:15 Abnormal Lab Results - Last 24 Hours (Table) 10/11/19 10/11/19 10/11/19 Range/Units 12:12 13:06 13:06 RBC 2.25 L (4.30-5.90) m/uL Hgb 7.8 L (13.0-17.5) gm/dL Hct 24.5 L (39.0-53.0) % MCV 109.3 H (80.0-100.0) fL Plt Count 131 L (150-450) k/uL Neutrophils # (1.3-7.7) k/uL Lymphocytes # 0.7 L (1.0-4.8) k/uL Macrocytosis Marked A PT (9.0-12.0) sec INR (<1.2) ABG pCO2 (35-45) mmHg ABG HCO3 (21-25) mmol/L ABG Total CO2 (19-24) mmol/L ABG O2 Saturation (94-97) % Sodium 136 L (137-145) mmol/L Glucose 128 H (74-99) mg/dL Calcium (8.4-10.2) mg/dL ALT 19 L (21-72) U/L Total Creatine Kinase (55-170) U/L CK-MB (CK-2) (0.0-2.4) ng/mL Total Protein 5.2 L (6.3-8.2) g/dL Albumin 2.4 L (3.5-5.0) g/dL Urine Protein 1+ H (Negative) Urine Blood Moderate H (Negative) 10/11/19 10/11/19 10/11/19 Range/Units 13:06 17:42 19:20 RBC (4.30-5.90) m/uL Hgb (13.0-17.5) gm/dL Hct (39.0-53.0) % MCV (80.0-100.0) fL Plt Count (150-450) k/uL Neutrophils # (1.3-7.7) k/uL Lymphocytes # (1.0-4.8) k/uL Macrocytosis PT 12.8 H (9.0-12.0) sec INR 1.2 H (<1.2) ABG pCO2 49 H (35-45) mmHg ABG HCO3 29 H (21-25) mmol/L ABG Total CO2 30 H (19-24) mmol/L ABG O2 Saturation 98.1 H (94-97) % Sodium (137-145) mmol/L Glucose (74-99) mg/dL Calcium (8.4-10.2) mg/dL ALT (21-72) U/L Total Creatine Kinase 457 H (55-170) U/L CK-MB (CK-2) 18.5 H (0.0-2.4) ng/mL Total Protein (6.3-8.2) g/dL Albumin (3.5-5.0) g/dL Urine Protein (Negative) Urine Blood (Negative) 10/12/19 10/12/19 10/12/19 Range/Units 04:15 04:15 04:57 RBC 2.48 L (4.30-5.90) m/uL Hgb 8.4 L (13.0-17.5) gm/dL Hct 26.7 L (39.0-53.0) % MCV 107.4 H (80.0-100.0) fL Plt Count (150-450) k/uL Neutrophils # 8.0 H (1.3-7.7) k/uL Lymphocytes # 0.4 L (1.0-4.8) k/uL Macrocytosis Marked A PT (9.0-12.0) sec INR (<1.2) ABG pCO2 (35-45) mmHg ABG HCO3 (21-25) mmol/L ABG Total CO2 26 H (19-24) mmol/L ABG O2 Saturation 97.2 H (94-97) % Sodium 136 L (137-145) mmol/L Glucose (74-99) mg/dL Calcium 7.9 L (8.4-10.2) mg/dL ALT (21-72) U/L Total Creatine Kinase (55-170) U/L CK-MB (CK-2) (0.0-2.4) ng/mL Total Protein (6.3-8.2) g/dL Albumin (3.5-5.0) g/dL Urine Protein (Negative) Urine Blood (Negative) Microbiology - Last 24 Hours (Table) 10/11/19 11:15 Gram Stain - Preliminary Sputum Sputum Culture - Preliminary Gram Neg Bacilli Diabetes panel 10/11/19 10/12/19 Range/Units 13:06 04:15 Sodium 136 L 136 L (137-145) mmol/L Potassium 3.5 3.8 (3.5-5.1) mmol/L Chloride 102 103 (98-107) mmol/L Carbon Dioxide 26 25 (22-30) mmol/L BUN 16 20 (9-20) mg/dL Creatinine 0.87 0.99 (0.66-1.25) mg/dL Glucose 128 H 80 (74-99) mg/dL Calcium 9.7 7.9 L (8.4-10.2) mg/dL AST 42 (17-59) U/L ALT 19 L (21-72) U/L Alkaline Phosphatase 84 (38-126) U/L Total Protein 5.2 L (6.3-8.2) g/dL Albumin 2.4 L (3.5-5.0) g/dL Calcium panel 10/11/19 10/12/19 Range/Units 13:06 04:15 Calcium 9.7 7.9 L (8.4-10.2) mg/dL Albumin 2.4 L (3.5-5.0) g/dL Pituitary panel 10/11/19 10/12/19 Range/Units 13:06 04:15 Sodium 136 L 136 L (137-145) mmol/L Potassium 3.5 3.8 (3.5-5.1) mmol/L Chloride 102 103 (98-107) mmol/L Carbon Dioxide 26 25 (22-30) mmol/L BUN 16 20 (9-20) mg/dL Creatinine 0.87 0.99 (0.66-1.25) mg/dL Glucose 128 H 80 (74-99) mg/dL Calcium 9.7 7.9 L (8.4-10.2) mg/dL Adrenal panel 10/11/19 10/12/19 Range/Units 13:06 04:15 Sodium 136 L 136 L (137-145) mmol/L Potassium 3.5 3.8 (3.5-5.1) mmol/L Chloride 102 103 (98-107) mmol/L Carbon Dioxide 26 25 (22-30) mmol/L BUN 16 20 (9-20) mg/dL Creatinine 0.87 0.99 (0.66-1.25) mg/dL Glucose 128 H 80 (74-99) mg/dL Calcium 9.7 7.9 L (8.4-10.2) mg/dL Total Bilirubin 0.7 (0.2-1.3) mg/dL AST 42 (17-59) U/L ALT 19 L (21-72) U/L Alkaline Phosphatase 84 (38-126) U/L Total Protein 5.2 L (6.3-8.2) g/dL Albumin 2.4 L (3.5-5.0) g/dL
--- NOTE | 2019-10-12 14:40 | P.PN ---
Subjective 69-year-old male was admitted the after cardiac arrest patient underwent CPR for about 40 minutes which is a PE and asystole and lower more minutes to get him in ER. Patient is presently on ventilatory support his breathing over the ventilator. Doesn't have a gag or cough reflex at this time patient was on propofol which is being discontinued patient apparently started having some pupillary reflex. Patient is also on norepinephrine drip started having low- grade fevers today because of which blood cultures are being obtained and patient was started on broad-spectrum antibiotics Zosyn and vancomycin patient does have some infiltrate in both lung lobes most probably atelectasis until we get the cultures and studies patient will be continued on antibiotics. Neurology was consulted and EEG is being obtained to assess the extent of anoxic brain injury. really hasn't greatly endotracheal tube and left subclavian venous catheter was removed because of the hydropneumothorax\ Review of systems: Unable to obtain due to his clinical condition All inpatient medications were reviewed and appropriate changes in these medications as d ictated in the interval history and assessment and plan. Objective - Vital Signs Vital signs: Vital Signs Temp 100.8 F H 10/12/19 12:00 Pulse 113 H 10/12/19 12:45 Resp 23 10/12/19 12:45 BP 159/76 10/12/19 12:45 Pulse Ox 94 L 10/12/19 12:45 Intake & Output 10/11/19 10/12/19 10/12/19 18:59 06:59 18:59 Intake Total 2568.577 2034.996 509.373 Output Total 1323 825 70 Balance 1109.731 1557.996 439.373 Weight 110.45 kg 113.7 kg Intake: IV 2544 1982 508 Magnesium Sulfate-D5w Pmx 200 100 1 gm In Dextrose/Water 1 100ml.bag @ 100 mls/hr IVPB ONCE ONE Rx#: [id number] Potassium Chloride 20 meq 50 In Water For Injection 1 100ml.bag @ 50 mls/hr IVPB Q2H [facility] Rx#: [id number] Sodium Chloride 0.9% 1, 544 1732 408 000 ml @ 136 mls/hr IV . Q7H22M [facility] Rx#:[id number] Sodium Chloride 0.9% 1, 1999 000 ml @ 999 mls/hr IV . Q1H1M ONE Rx#:[id number] Intake, IV Titration 24.577 52.996 1.373 Amount Norepinephrine 32 mg In 3.754 51.184 Sodium Chloride 0.9% 218 ml @ 0.05 MCG/KG/MIN 2. 589 mls/hr IV .Q24H [facility] Rx#:[id number] Propofol 1,000 mg In 20.823 Empty Bag 1 bag @ Titrate IV .Q0M [facility] Rx#: [id number] Propofol 1,000 mg In 1.812 1.373 Empty Bag 1 bag @ Titrate IV .Q0M [facility] Rx#: [id number] Output: Chest Tube Drainage 398 105 Chest Tube Right Lateral 280 105 Chest Thora-Vent Right Upper 118 Anterior Chest Gastric Drainage 175 Urine 925 545 70 Other: Voiding Method Indwelling Catheter Indwelling Catheter ABP, PAP, CO, CI - Last Documented Arterial Blood Pressure 162/73 - Exam PHYSICAL EXAMINATION: GENERAL: Currently intubated off sedation pupillary reflexes as mentioned above gag reflex as mentioned above, patient is breathing over the ventilator set rate of 18 and patient is breathing about 20-28 HEENT: No scleral icterus. No conjunctival pallor. Normocephalic, atraumatic. No pharyngeal erythema. No thyromegaly. CARDIOVASCULAR: S1 and S2 present. No murmurs, rubs, or gallops. PULMONARY: Significant bilateral rhonchi ABDOMEN: Soft, nontender, nondistended, normoactive bowel sounds. No palpable organomegaly. MUSCULOSKELETAL: No joint swelling or deformity. EXTREMITIES: No cyanosis, clubbing, or pedal edema. NEUROLOGICAL: Unable to assess as except for those mentioned above SKIN: No rashes. - Labs CBC & Chem 7: 10/12/19 04:15 10/12/19 04:15 Labs: Abnormal Lab Results - Last 24 Hours (Table) 10/11/19 10/11/19 10/12/19 Range/Units 17:42 19:20 04:15 RBC 2.48 L (4.30-5.90) m/uL Hgb 8.4 L (13.0-17.5) gm/dL Hct 26.7 L (39.0-53.0) % MCV 107.4 H (80.0-100.0) fL Neutrophils # 8.0 H (1.3-7.7) k/uL Lymphocytes # 0.4 L (1.0-4.8) k/uL Macrocytosis Marked A ABG pCO2 49 H (35-45) mmHg ABG HCO3 29 H (21-25) mmol/L ABG Total CO2 30 H (19-24) mmol/L ABG O2 Saturation 98.1 H (94-97) % Sodium (137-145) mmol/L Calcium (8.4-10.2) mg/dL Total Creatine Kinase 457 H (55-170) U/L CK-MB (CK-2) 18.5 H (0.0-2.4) ng/mL Troponin I (0.000-0.034) ng/mL 10/12/19 10/12/19 10/12/19 Range/Units 04:15 04:57 12:26 RBC (4.30-5.90) m/uL Hgb (13.0-17.5) gm/dL Hct (39.0-53.0) % MCV (80.0-100.0) fL Neutrophils # (1.3-7.7) k/uL Lymphocytes # (1.0-4.8) k/uL Macrocytosis ABG pCO2 (35-45) mmHg ABG HCO3 (21-25) mmol/L ABG Total CO2 26 H (19-24) mmol/L ABG O2 Saturation 97.2 H (94-97) % Sodium 136 L (137-145) mmol/L Calcium 7.9 L (8.4-10.2) mg/dL Total Creatine Kinase (55-170) U/L CK-MB (CK-2) (0.0-2.4) ng/mL Troponin I 0.270 H* (0.000-0.034) ng/mL Microbiology - Last 24 Hours (Table) 10/11/19 11:15 Gram Stain - Preliminary Sputum Sputum Culture - Preliminary Gram Neg Bacilli Assessment and Plan Plan: -Status post cardiac arrest with asystole and pulseless electrical activity: Continue with ventilatory support continue with pressor support. Patient is off propofol and neurology will evaluate for any anoxic brain injury. Sylvester-acute hypoxic respiratory failure secondary to cardiorespiratory arrest -Right hydropneumothorax iatrogenic from central line placement central line was removed -Rib fractures the second and third -Shock requiring pressor support probably hypovolemic septic and patient is on empiric antibiotics blood cultures will be obtained urinalysis and cultures will be obtained and chest x-ray as mentioned above cannot rule out pneumonia Elevated troponin likely due to cardiopulmonary resuscitation Recent GI bleed. Status post EGD and colonoscopy.. Hemoglobin on admission stable at 8.3 Atrial fibrillation paroxysmal . Was on anticoagulation with Eliquis. Hold on due to recent GI bleed. Diabetes type 2 Severe alcohol abuse on a daily basis. Macrocytic anemia secondary to chronic alcohol use. B12 within normal limits. hypertension GERD GI and DVT prophylaxis.
[2019-10-12] MEDS ORDERED: PIPERACILLIN-TAZOBACTAM 3.375 GM in SODIUM CHLORIDE 0.9% 100 ML IVPB SCH (16:00)
--- NOTE | 2019-10-12 16:02 | EEG ---
ELECTROENCEPHALOGRAM REPORT DATE OF SERVICE: 10/12/2019. PREAMBLE: This is a 74-year-old male with cardiac arrest. The down time was approximately one hour. Pupils are pinpoint with no response. EEG FINDINGS: A routine 21-channel awake digital EEG recording was accomplished utilizing the 10/20 international system with bipolar and referential montages. The recording starts and continues with presence of diffuse moderate mid to high amplitude mixed frequencies of delta and theta activity seen in bihemispheric region. Background does not seem to be reactive to eye opening or closing. Photic driving response was not seen. Different stages of sleep were not seen. No focal or generalized epileptiform activity was seen. EKG rhythm lead revealed some arrhythmia. IMPRESSION: This is an abnormal EEG due to background slowing of at moderate to severe degree. This is suggestive of generalized cerebral dysfunction, as can be seen in toxic metabolic, or anoxic encephalopathies or due to diffuse structural brain abnormality. No definitive epileptiform activity was seen. MMODL / IJN: [id number] / MTDD
[2019-10-12] MEDS ORDERED: VANCOMYCIN IV PER PHARMACY 1 EACH MISC MISCELLANE PRN (16:07)
[2019-10-12] MEDS ORDERED: VANCOMYCIN 2,500 MG in SODIUM CHLORIDE 0.9% 500 ML 500 ML IVPB ONE (17:00)
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
[2019-10-12 19:48] LABS: Glucose,Whole Blood 98 mg/dL (75-99)
[2019-10-12] MEDS ORDERED: MORPHINE SULFATE (100 MG/2 ML) 100 MG in SODIUM CHLORIDE 0.9% 100 ML IV SCH (20:15)
[2019-10-12] MEDS ORDERED: SCOPOLAMINE 1.5MG/72HR PATCH TRANSDERM SCH (20:30)
[2019-10-12 20:53] VITALS: BP 124/68; PULSE 96; RESP 28; TEMP 98.2
[2019-10-13] MEDS ORDERED: VANCOMYCIN 2,000 MG in SODIUM CHLORIDE 0.9% 500 ML 500 ML IVPB SCH (06:00)
--- NOTE | 2019-10-13 14:51 | P.DS ---
Providers Date of admission: 10/11/19 13:07 Attending physician: Angelique Silva Consults: 10/11/19 13:07 Consult Physician Stat Consulting Provider: Ajit Pace Consult Reason/Comments: Critical care Do you want consulting provider notified?: Already Contacted Consult Physician Urgent Consulting Provider: Devyn Slaughter Consult Reason/Comments: recent gi bleed, pneumothorax Do you want consulting provider notified?: Already Contacted Consult Physician Urgent Consulting Provider: Rick Pandey Consult Reason/Comments: cardiac arrest Do you want consulting provider notified?: Already Contacted 10/12/19 13:24 Consult Physician Stat Consulting Provider: Sherry Musa Consult Reason/Comments: cardiac arrest with downtime of 1 hour Do you want consulting provider notified?: Yes Primary care physician: Jesika Bowman Hospital Course: Patient was evaluated by neurology, patient has very minimal brainstem reflexes and is in comatose state, neurologist discussed with the family subsequently packed family waited addition of comfort care and hospice comfort measures were initiated and patient was terminally weaned subsequently last night please refer to nursing documentation for exact time of . Patient Condition at Discharge: Undetermined Plan - Discharge Summary Discharge Rx Participant: No New Discharge Prescriptions: No Action Omeprazole 20 mg PO QAM Furosemide [Lasix] 40 mg PO BID Ferrous Sulfate [Iron (65 MG Elemental)] 325 mg PO QAM Enalapril [Vasotec] 2.5 mg PO DAILY Carvedilol 25 mg PO QAM Allopurinol [Zyloprim] 100 mg PO QAM [place]-3 Fatty Acids [[place]-3] 1,000 mg PO QAM Multivitamin [Multivitamins Adult Gummies] 1 each PO DAILY #30 tablet Thiamine [Vitamin B-1] 100 mg PO BID-W/MEALS #30 tab Discharge Medication List Allopurinol [Zyloprim] 100 mg PO QAM 10/05/19 [History] Carvedilol 25 mg PO QAM 10/05/19 [History] Enalapril [Vasotec] 2.5 mg PO DAILY 10/05/19 [History] Ferrous Sulfate [Iron (65 MG Elemental)] 325 mg PO QAM 10/05/19 [History] Furosemide [Lasix] 40 mg PO BID 10/05/19 [History] [place]-3 Fatty Acids [[place]-3] 1,000 mg PO QAM 10/05/19 [History] Omeprazole 20 mg PO QAM 10/05/19 [History] Multivitamin [Multivitamins Adult Gummies] 1 each PO DAILY #30 tablet 10/10/19 [Rx] Thiamine [Vitamin B-1] 100 mg PO BID-W/MEALS #30 tab 10/10/19 [Rx] Follow up Appointment(s)/Referral(s): Jesika Bowman MD [Primary Care Provider] - 1-2 days Discharge Disposition: - Preliminary Cause of Preliminary Cause of : Cardiopulmonary arrest etiology is not clear can be sepsis from pneumonia
--- NOTE | 2019-10-15 08:33 | CDI ---
Documentation Clarification Form Date: 10/15/19 From: Yanira Mann Phone: If you have a question about this query, please contact Rae Nichole Staff Pharmacist at [phone] between 8am and 5pm. Admit Date: 10/11/19 Discharge Date:10/12/19 Patient Name: Sumeet Giraldo Visit Number: [id number] ATTENTION: The Clinical Documentation Specialists (CDI) and [facility] Coding Staff appreciate your assistance in clarifying documentation. Please respond to the clarification below the line at the bottom and electronically sign. The CDI & [facility] Coding staff will review the response and follow-up if needed. Please note: Queries are made part of the Legal Health Record. If you have any questions, please contact the author of this message via ITS. Dear Dr. Jaswant Salgado Pneumonia was documented in the discharge summary under preliminary cause of . Cannot rule out pneumonia is documented in your 10/12 progress note. History/Risk Factors: Cardiac arrest of unknown reason, right pneumothorax, acute hypoxic respiratory failure, recent hospitalization Clinical Indicators: Possible pneumonia on chest x-ray Vital signs: T. 97.4 then down to 94 4 hours after admission, P 77, R. 16, BP 116/106 WBC/Left shift: 8.2/67%, 82%, 88% X-ray: 10/12 CXR: possible atelectasis versus pneumonia. Dr. Pandey documented that the chest x-ray showed possible pneumonia. Lung/Breathing assessment: Patient on vent, diffuse breath sounds, Dr. Pace documented coarse bilateral rhonchi Treatment: Antibiotics: IV Zosyn, IV Vancomycin O2: Patient on Vent In order to capture the severity of condition, please clarify if the condition signifies and you are treating for: Aspiration Pneumonia, identify if: Due to solids or liquids Due to anesthesia during L/D Due to anesthesia during puerperium Bacterial Pneumonia, specify causal organism (if known) Gram Negative Pneumonia Due to Strep Due to Staph Due to E. Coli Other bacteria (please specify) Viral Pneumonia, specify casual organism (if known) Healthcare Acquired Pneumonia/Pneumonia, unspecified Other, please specify Unable to determine Unable to determine MTDD
== END 2019-10-12 23:45 | disposition expired | DRG 871 ==
LOC: EC 10:27 → 2SICU 13:07
PROVIDERS: ADMIT Internal Medicine; ATTEND Internal Medicine
PROC: 5A1945Z Respiratory Ventilation, 24-96 Consecutive Hours (ICD-10-PCS; principal; 2019-10-11)
PROC: 0BH17EZ Insertion of Endotracheal Airway into Trachea, Via Natural or Artificial Opening (ICD-10-PCS; 2019-10-11)
PROC: 05H533Z Insertion of Infusion Device into Right Subclavian Vein, Percutaneous Approach (ICD-10-PCS; 2019-10-11)
PROC: 0W9930Z Drainage of Right Pleural Cavity with Drainage Device, Percutaneous Approach (ICD-10-PCS; 2019-10-11)
PROC: 05H633Z Insertion of Infusion Device into Left Subclavian Vein, Percutaneous Approach (ICD-10-PCS; 2019-10-11)
PROC: 0W9930Z Drainage of Right Pleural Cavity with Drainage Device, Percutaneous Approach (ICD-10-PCS; 2019-10-11)
PROC: 03HC33Z Insertion of Infusion Device into Left Radial Artery, Percutaneous Approach (ICD-10-PCS; 2019-10-11)
DX: A41.9 Sepsis, unspecified organism (principal); J18.9 Pneumonia, unspecified organism; J96.01 Acute respiratory failure with hypoxia; R65.21 Severe sepsis with septic shock; R40.2312 Coma scale, best motor response, none, at arrival to emergency department; R40.2112 Coma scale, eyes open, never, at arrival to emergency department; R40.2212 Coma scale, best verbal response, none, at arrival to emergency department; J95.811 Postprocedural pneumothorax; S22.41XA Multiple fractures of ribs, right side, initial encounter for closed fracture; E87.2 Acidosis; G93.1 Anoxic brain damage, not elsewhere classified; I46.9 Cardiac arrest, cause unspecified; R57.1 Hypovolemic shock; I48.0 Paroxysmal atrial fibrillation; Z66 Do not resuscitate; Z51.5 Encounter for palliative care; D53.9 Nutritional anemia, unspecified; E11.9 Type 2 diabetes mellitus without complications; I11.9 Hypertensive heart disease without heart failure; E78.5 Hyperlipidemia, unspecified; F10.10 Alcohol abuse, uncomplicated; I25.10 Atherosclerotic heart disease of native coronary artery without angina pectoris; K21.9 Gastro-esophageal reflux disease without esophagitis; K29.70 Gastritis, unspecified, without bleeding; K31.7 Polyp of stomach and duodenum; K57.90 Diverticulosis of intestine, part unspecified, without perforation or abscess without bleeding; V47.5XXA Car driver injured in collision with fixed or stationary object in traffic accident, initial encounter; Y92.410 Unspecified street and highway as the place of occurrence of the external cause; K64.4 Residual hemorrhoidal skin tags; K64.8 Other hemorrhoids; M10.9 Gout, unspecified; R79.89 Other specified abnormal findings of blood chemistry; R40.2431 Glasgow coma scale score 3-8, in the field [EMT or ambulance]; Z79.01 Long term (current) use of anticoagulants; Z79.899 Other long term (current) drug therapy; Z98.42 Cataract extraction status, left eye; Z98.41 Cataract extraction status, right eye; Z96.1 Presence of intraocular lens; Z83.3 Family history of diabetes mellitus
CPT/HCPCS: 32551; 36415; 36556; 36600; 70450; 71045; 71260; 72125; 74177; 80048; 80053; 81001; 82550; 82553; 82805; 83605; 83735; 84484; 85025; 85610; 85730; 86850; 86900; 86901; 87040; 87070; 87077; 87186; 87205; 87502; 93005; 93306; 94002; 94003; 94640; 95816; 96361; 96365; 96366; 96368; 96375; 99291; 99292